=== PATIENT | male | born 1955 | race Caucasian/White ===

== ENCOUNTER 2025-01-19 13:47 | Outpatient (CLI) | payer MEDICARE, SELFPAY ==
--- NOTE | ~2025-01-19 | PE_ITS ---
EXAMINATION: PET_PETPSMAST_PT DATE: 01/19/2025 15:40 INDICATION: Prostate cancer TECHNIQUE: 5.098 mCi of Illucix Ga-68([id number]) was administered i.v. Low dose computed elan graphy (CT) images were acquired from the base of the brain to the base of the brain to the proximal thighs for attenuation correction and anatomic localization. Positron emission tomography (PET) image s were acquired in the same distribution beginning 86 minutes after injection. Images including fused PET/CT images were reconstructed in axial, coronal, and sagittal planes. Automated exposure control technique was employed. The dose-length product was 789.73mGy-cm. COMPARISON: None FINDINGS: Head/neck: Typical pattern of symmetric physiologic increased activity in the lacrimal, parotid and submandibula r glands as well as along the mucosa of the nasal and oral cavities, pharynx and hypopharynx. No path ologically enlarged cervical lymphadenopathy or suspicious foci of increased uptake in the visualized head or neck. Chest: Moderate upper lung predominant emphysema with mild biapical pleural-parenchymal scarring. Dependent groundglass opacities consistent with atelectasis in the bilateral lower lobes. There are large calci fied nodules in both lungs and calcified left hilar lymph node consistent with old granulomatous dise ase. There are couple thick-walled cavitary lesions measuring 1.8 cm in the paramediastinal left uppe r lobe and 1.9 cm in the superior segment of the left lower lobe. 6 mm noncalcified right middle lobe nodule and 5 mm left lower lobe nodule. Larger flat lenticular likely intrafissural lymph nodes anson uring 10 mm along the right minor fissure and 12 mm along the left major fissure. All are without abn ormal PSA may uptake. No pleural effusion. Mild cardiomegaly. Ectatic ascending thoracic aorta measur ing up to 4.0 cm. No pathologically enlarged or PSMA avid thoracic lymphadenopathy. Abdomen/pelvis/proximal thighs: Physiologic renal accumulation and excretion of activity in the kidneys, bladder and along portions o f ureters. Small region of increased activity with maximal SUV of 6.9 at the left posterior aspect of the enlarged prostate which measures 5.0 x 3.9 cm. Normal degree and slightly heterogenous pattern o f increased uptake throughout the liver and spleen without radiologic correlate or dominant PSMA avid lesion. The gallbladder, pancreas and bilateral adrenal glands are normal. Moderate uptake scattered throughout the bowels with typical duodenal and proximal jejunal predominance and without radiologic correlate, also likely physiologic. Normal appendix. No other abnormal foci of increased uptake or p athologically enlarged lymphadenopathy in the abdomen, pelvis or proximal thighs. Musculoskeletal: L1 compression fracture with 40% anterior vertebral body height loss. There is a severe anterior wedg ing at and T7, T8 and T12. Schmorl's nodes throughout the spine. No suspicious lytic, blastic or abno rmally PSA may avid bone lesions to suggest metastatic disease. IMPRESSION: 1. Small focus of moderate increased uptake at the left posterior aspect of the enlarged prostate con sistent with primary prostate cancer. No evident metastatic prostate cancer. 2. Moderate emphysema with a couple thick-walled cavitary lesions in the left upper lobe and superior segment of the left lower lobe which given appearance and multiplicity are most likely infectious/in flammatory in etiology. Differential would however includes malignancy and would recommend correlatio n with any prior outside imaging. If long-term stability cannot be confirmed would consider either fu rther evaluation with standard FDG PET CT or 3 month follow-up chest CT. 3. A few additional indeterminate noncalcified pulmonary nodules and likely intrafissural lymph nodes which could be further assessed at the same time as the cavitary lesions. Reviewed, dictated and finalized at location B. OUT AND DETAIL DRAFTER IMPRESSION: 1. Small focus of moderate increased uptake at the left posterior aspect of the enlarged prostate consistent with primary prostate cancer. No evident metastat ic prostate cancer. 2. Moderate emphysema with a couple thick-walled cavitary lesions in the left u pper lobe and superior segment of the left lower lobe which given appearance an d multiplicity are most likely infectious/inflammatory in etiology. Differentia l would however includes malignancy and would recommend correlation with any pr ior outside imaging. If long-term stability cannot be confirmed would consider either further evaluation with standard FDG PET CT or 3 month follow-up chest C T. 3. A few additional indeterminate noncalcified pulmonary nodules and likely int rafissural lymph nodes which could be further assessed at the same time as the cavitary lesions.
--- OUTSIDE RECORDS SUMMARY | 2025-01-19 16:00 | XMS_ITS | Patient Health Summary ---
Author Organization [facility] [employer] Address [address] [place] [address] Care Team Providers Care Special Officer Name Role Phone Unavailable Primary Care Provider Unavailabl e Note from [facility] [employer] [facility],non-owned Affiliates and Associated Physician Practices is amultiple site organization consisting of ambulatory clinics and hospital sitesin [place], [place], [place] and [place]. This disclosure is being madepursuant to the Care Everywhere program and may not contain all information available regarding this patient. Last updated 18.[facility] [employer] Allergies No known active allergies Medications * Be aware that medications may not be up to date on this document. Alwaysverify current medications with the patient. * ibuprofen (MOTRIN) 400 MG tablet Take 400 mg by mouth every 6 hours as needed. * lisinopril (PRINIVIL; ZESTRIL) 2.5 MG tablet(Started 10/12/2013) Take 1 Tab by mouth once daily. 11 refills left * metoprolol tartrate IR (LOPRESSOR) 25 MG tablet(Started 10/12/2013) Take 0.5 Tabs by mouth 2 times daily. 11 refills left * aspirin 81 MG chew tablet(Started 10/12/2013) Take 1 Tab by mouth once daily. Active Problems Problem Noted Date Diagnosed Date Chest pain 10/10/2013 ACS (acute coronary syndrome) 10/10/2013 NSTEMI (non-ST elevated myocardial infarction) 1 12/10/2012 Social History Tobacco Use Types Packs/Day Years Used Date Smoking Tobacco: Light Smoker Cigarettes 0.5 33 Smokeless Tobacco: Never Tobacco Cessation:Counseling Given: Yes Alcohol Use Standard Drinks/Week Comments Yes 0.8 (1 standard drink = 0.6 oz p ure alcohol) Sex and Gender Information Value Date Recorded Sex Assigned at Not on file Gender Identity Not on file Sexual Orientation Not on file Last Filed Vital Signs Vital Sign Reading Time Taken Comments Blood Pressure 110/66 10/12/2013 12:00 PM [employer] Pulse 63 10/12/2013 12:00 PM [employer] Temperature 36.9 C (98.5 F) 10/12/2013 11:30 AM [employer] Respiratory Rate 19 10/12/2013 11:30 AM [employer] Oxygen Saturation 99% 10/12/2013 12:00 PM [employer] Inhaled Oxygen Concentration - - Weight 66.3 kg (146 lb 2.6 oz) 10/12/2013 5:12 A M [employer] Height 177.8 cm (5' 10 ) 10/10/2013 5:56 PM [employer] Body Mass Index 20.97 10/10/2013 5:56 PM [employer] Procedures * LAB RESULTS ORDER(Performed 10/15/2013) * CARDIAC RHYTHM STRIP ORDER(Performed 10/14/2013) * CARDIAC EKG ORDER(Performed 10/14/2013) * CARDIAC CATH CONSULT(Performed 10/12/2013) * BASIC METABOLIC PANEL (CALCIUM TOTAL)(Performed 10/12/2013) Performed for Chest pain, ACS (acute coronary syndrome) ([facility]), NSTEMI (non-ST elevated myocardial infarction) ([facility]) * LIPID PROFILE(Performed 10/12/2013) * CBC W AUTO DIFFERENTIAL(Performed 10/12/2013) * PTT(Performed 10/12/2013) * PT PTT PANEL(Performed 10/12/2013) * PTT(Performed 10/11/2013) * PTT(Performed 10/11/2013) * PTT(Performed 10/11/2013) Performed for Chest pain * CBC W AUTO DIFFERENTIAL(Performed 10/11/2013) * PT PTT PANEL(Performed 10/11/2013) * TROPONIN I(Performed 10/11/2013) Performed for ACS (acute coronary syndrome) ([facility]) * PTT(Performed 10/11/2013) Performed for ACS (acute coronary syndrome) ([facility]), NSTEMI (non-ST elevated myocardial infarction) ([facility]) * PT PTT PANEL(Performed 10/10/2013) * CBC W AUTO DIFFERENTIAL(Performed 10/10/2013) * TROPONIN I(Performed 10/10/2013) Results * LAB RESULTS ORDER (10/15/2013 10:05 AM [employer]) Narrative 10/15/2013 10:05 AM [employer] Ordered by an unspecified provider. Transcriptions Document, Scanned - 10/15/2013 10:05 AM CST Scanned Document LAB - THERAPEUTIC DR UG MONITORING ORDERABLES * CARDIAC RHYTHM STRIP ORDER (10/14/2013 9:27 AM [employer]) Narrative 10/14/2013 9:27 AM [employer] Ordered by an unspecified provider. Transcriptions Document, Scanned - 10/14/2013 9:26 AM CST Scanned Document CARDIAC SERVICES ORD ERABLES * CARDIAC EKG ORDER (10/14/2013 9:27 AM [employer]PER[employer]) Narrative 10/14/2013 9:27 AM [employer] Ordered by an unspecified provider. 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 PROCEDURES(S) PERFORMED: -- Left heart catheterization with ventriculography. -- Left coronary angiography. -- Right coronary angiography. -- Right common femoral angiography. DESCRIPTION OF PROCEDURE: BACKGROUND INFORMATION: The procedure(s), together with their attendant risks and alternatives, and conscious sedation were explained to the patient and informed consent was obtained. Cardiac catheterization performed. NARRATIVE: -- Right femoral artery access. The procedure was done with 2 % lidocaine using the modified Seldinger technique. A 6 Fr introducer sheath was advanced into the vessel. -- Left heart catheterization. The catheter was advanced across the aortic valve. Pressure was recorded in the aorta and left ventricle. Ventriculography was performed using power assisted injection of contrast agent. URRUTIA images were obtained. Post-ventriculography LV pressure was obtained. The catheter was gradually withdrawn into the aorta under continuous pressure monitoring and aortic pressure was recorded. -- Left coronary artery angiography. A catheter was advanced to the ascending aorta and positioned at the vessel origin under fluoroscopic guidance. Digital angiography was performed in multiple projections using power-assisted injection of contrast. -- Right coronary artery angiography. A catheter was advanced to the ascending aorta and positioned at the vessel origin under fluoroscopic guidance. Digital angiography was performed in multiple projections using power-assisted injection of contrast. -- Right common femoral angiography. HEMODYNAMICS: Hemodynamic assessment demonstrated mild systemic hypertension and normal LVEDP. VENTRICLES: EF calculated by contrast ventriculography was 62 %. CORONARY AND GRAFT ANGIOGRAPHY (DETAILED FINDINGS): The coronary circulation is right dominant. Left main: Normal. Proximal LAD: There was a discrete 30 % stenosis. The lesion was smoothly contoured and concentric. Circumflex: Normal. RCA: Normal. RIGHT LOWER EXTREMITY VESSELS: Right leg angiography was limited to the common femoral and the proximal portion of the superficial femoral and deep femoral arteries. These vessels appeared normal. PROCEDURE COMPLETION: TIMING: Test started at 10:07. Test concluded at 10:21. RADIATION EXPOSURE: Fluoroscopy time: 2.4 min. HEMOSTASIS: The sheaths were removed. Arterial hemostasis was obtained using a closure device ( Angioseal). CONTRAST GIVEN: Omnipaque 83 ml. 10 ml Waste. RECOMMENDATIONS: -- Patient management should include aggressive medical therapy and smoking cessation. CONCLUSIONS(S): SUMMARY: -- HEMODYNAMICS: -- Hemodynamic assessment demonstrated mild systemic hypertension and normal LVEDP. -- CORONARY CIRCULATION: -- Proximal LAD: There was a discrete 30 % stenosis. The lesion was smoothly contoured and concentric. -- CARDIAC STRUCTURES: -- EF calculated by contrast ventriculography was 62 %. 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 I personally performed this entire procedure. All images and data generated for this procedure were personally reviewed by me. Prepared and Electronically Authenticated Soto Lerner MD, [facility], [facility] 10/13/2013 12:09:17 HEMODYNAMIC TABLES Pressures: Baseline Pressures: - HR: 66 Pressures: - Rhythm: Pressures: -- Aortic Pressure (S/D/M): 152/83/108 Pressures: -- Left Ventricle (s/edp): 163/13/-- Outputs: Baseline Outputs: -- CALCULATIONS: [age] Outputs: -- CALCULATIONS: Body Surface Area: 1.83 Outputs: -- CALCULATIONS: Height in cm: 178.00 Outputs: -- CALCULATIONS: Sex: Male Outputs: -- CALCULATIONS: Weight in k.30 Procedure Note 10/13/[address] [address] Cardiovascular Comprehensive Report Patient: CARLOS CURTIS MR #: [id number] Study date: 10/12/2013 Status: Inpatient : 1955 ( 58 years) Gender: Male Height: 70.1 in Weight: 145.9 lb BSA: 1.83 m bean snipper: Soto Lerner MD, [facility], [facility] CLINICAL SUMMARY: INDICATIONS: Angina/RI: myocardial infarction without ST elevation(NSTEMI). PROCEDURES(S) PERFORMED: -- Left heart catheterization with ventriculography. -- Left coronary angiography. -- Right coronary angiography. -- Right common femoral angiography. DESCRIPTION OF PROCEDURE: BACKGROUND INFORMATION: The procedure(s), together with their attendantrisks and alternatives, and conscious sedation were explained to the patientand informed consent was obtained. Cardiac catheterization performed. NARRATIVE: -- Right femoral artery access. The procedure was done with 2 % lidocaine using the modified Seldinger technique. A 6 Fr introducer sheath was advancedinto the vessel. -- Left heart catheterization. The catheter was advanced across theaortic valve. Pressure was recorded in the aorta and left ventricle.Ventriculography was performed using power assisted injection of contrast agent. URRUTIA images were obtained. Post-ventriculography LV pressure was obtained. The catheterwas gradually withdrawn into the aorta under continuous pressure monitoringand aortic pressure was recorded. -- Left coronary artery angiography. A catheter was advanced to theascending aorta and positioned at the vessel origin under fluoroscopic guidance.Digital angiography was performed in multiple projections using power-assisted injection of contrast. -- Right coronary artery angiography. A catheter was advanced to theascending aorta and positioned at the vessel origin under fluoroscopic guidance.Digital angiography was performed in multiple projections using power-assisted injection of contrast. -- Right common femoral angiography. HEMODYNAMICS: Hemodynamic assessment demonstrated mild systemichypertension and normal LVEDP. VENTRICLES: EF calculated by contrast ventriculography was 62 %. CORONARY AND GRAFT ANGIOGRAPHY (DETAILED FINDINGS): The coronary circulation is right dominant. Left main: Normal. Proximal LAD: There was a discrete 30 % stenosis. The lesion wassmoothly contoured and concentric. Circumflex: Normal. RCA: Normal. RIGHT LOWER EXTREMITY VESSELS: Right leg angiography was limited to the common femoral and the proximal portion of the superficial femoral and deep femoral arteries. Thesevessels appeared normal. PROCEDURE COMPLETION: TIMING: Test started at 10:07. Test concluded at10:21. RADIATION EXPOSURE: Fluoroscopy time: 2.4 min. HEMOSTASIS: The sheathswere removed. Arterial hemostasis was obtained using a closure device (Angioseal). CONTRAST GIVEN: Omnipaque 83 ml. 10 ml Waste. RECOMMENDATIONS: -- Patient management should include aggressivemedical therapy and smoking cessation. CONCLUSIONS(S): SUMMARY: -- HEMODYNAMICS: -- Hemodynamic assessment demonstrated mild systemic hypertension andnormal LVEDP. -- CORONARY CIRCULATION: -- Proximal LAD: There was a discrete 30 % stenosis. The lesion wassmoothly contoured and concentric. -- CARDIAC STRUCTURES: -- EF calculated by contrast ventriculography was 62 %. 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 I personally performed this entire procedure. All images and datagenerated for this procedure were personally reviewed by me. Prepared and Electronically Authenticated Soto Lerner MD, [facility], [facility] 10/13/2013 12:09:17 HEMODYNAMIC TABLES Pressures: Baseline Pressures: - HR: 66 Pressures: - Rhythm: Pressures: -- Aortic Pressure (S/D/M): 152/83/108 Pressures: -- Left Ventricle (s/edp): 163/13/-- Outputs: Baseline Outputs: -- CALCULATIONS: [age] Outputs: -- CALCULATIONS: Body Surface Area: 1.83 Outputs: -- CALCULATIONS: Height in cm: 178.00 Outputs: -- CALCULATIONS: Sex: Male Outputs: -- CALCULATIONS: Weight in k.30 Soto Lerner MD ECHO ORDERABLES [facility] * (ABNORMAL) CBC W AUTO DIFFERENTIAL (10/12/2013 5:58 AM [employer]) Only the most recent of3 resultswithin the time period is included. WBC 8.2 4.0 - 10.0 x10^9/L 10/12/2013 6:47 AM [facility] RBC 4.32(L) 4.40 - 6.10 x10^12/L 10/12/2013 6:47 AM [facility] Hemoglobin 13.0(L) 13.7 - 17.5 gm/dL 10/12/2013 6:47 AM [facility] Hematocrit 37.1(L) 40.1 - 51.0 % 10/12/2013 6:47 AM [facility] MCV 85.9 78.0 - 100.0 fl 10/12/2013 6:47 AM [facility] MCH 30.1 25.6 - 34.0 pg 10/12/2013 6:47 AM [facility] MCHC 35.0 32.3 - 36.5 gm/dL 10/12/2013 6:47 AM [facility] RDW 12.9 11.6 - 14.4 % 10/12/2013 6:47 AM [facility] MPV 10.6 9.4 - 12.4 fl 10/12/2013 6:47 AM [facility] Platelet Count 247 163 - 369 x10^9/L 10/12/2013 6:47 AM [facility] Neutrophils % 55.7 40.0 - 75.0 % 10/12/2013 6:47 AM [facility] Lymphocytes % 32.3 19.3 - 53.1 % 10/12/2013 6:47 AM [facility] Monocytes % 6.9 4.7 - 12.5 % 10/12/2013 6:47 AM [facility] Eosinophils % 4.5 0.7 - 7.0 % 10/12/2013 6:47 AM [facility] Basophils % 0.2 0.1 - 1.2 % 10/12/2013 6:47 AM [facility] Immature Granulocytes 0.4 0 - 0.5 % 10/12/2013 6:47 AM [facility] Neutrophil Absolute 4.57 1.56 - 6.13 x10^9/L 10/12/2013 6:47 AM [facility] Lymphocytes Absolute 2.65 1.18 - 3.74 x10^9/L 10/12/2013 6:47 AM [facility] Monocytes Absolute 0.57 0.24 - 0.86 x10^9/L 10/12/2013 6:47 AM [facility] Eosinophils Absolute 0.37 0.04 - 0.54 x10^9/L 10/12/2013 6:47 AM [facility] Basophils Absolute 0.02 0.01 - 0.08 x10^9/L 10/12/2013 6:47 AM [facility] Immature Granulocytes Absolute 0.03 0 - 0.03 x10^9/L 10/12/2013 6:47 AM [facility] nRBC Auto 0 <=0 /100 WBC 10/12/2013 6:47 AM [facility] nRBC Absolute 0.00 <=0 x10^9/L 10/12/2013 6:47 AM [facility] Blood BLOOD SPECIMEN / Unknown Lab Venipuncture / Unknown 10/12/2013 5:58 AM [employer] 10/12/2013 6:30 AM [facility] Ramon Voss MD LAB - HEMATOLOGY ORD ERABLES Performing Organization Address City/State/[facility] Co de Phone Number [facility] [address] [place] [address] * (ABNORMAL) BASIC METABOLIC PANEL (CALCIUM TOTAL) (10/12/2013 5:58 AM [facility]) [facility] Glucose 97 70 - 125 mg/dL 10/12/2013 9:52 AM [facility] Sodium 139 136 - 145 mmol/L 10/12/2013 9:52 AM [facility] Potassium 3.8 3.4 - 4.5 mmol/L 10/12/2013 9:52 AM [facility] Chloride 108(H) 98 - 107 mmol/L 10/12/2013 9:52 AM [facility] CO2 21(L) 22 - 29 mmol/L 10/12/2013 9:52 AM [facility] Calcium 8.8 8.4 - 10.2 mg/dL 10/12/2013 9:52 AM [facility] Anion Gap 14 10 - 20 mmol/L 10/12/2013 9:52 AM [facility] BUN 17 8.4 - 25.7 mg/dL 10/12/2013 9:52 AM [facility] Creatinine 1.10 0.72 - 1.25 mg/dL 10/12/2013 9:52 AM [facility] eGFR by MDRD >60 >60 mL/min/1.7 3m2 10/12/2013 9:52 AM [facility] eGFR by MDRD >60 >60 mL/min/1.7 3m2 10/12/2013 9:52 AM [facility] Blood BLOOD SPECIMEN / Unknown Lab Venipuncture / Unknown 10/12/2013 5:58 AM [employer] 10/12/2013 8:31 AM [facility] Soto Lerner MD LAB - CHEMISTRY [facility] Organization Address City/State/ZIP Co de Phone Number [facility] [address] * LIPID PROFILE (10/12/2013 5:58 AM [facility]) Cholesterol 147 <200 mg/dL 10/12/2013 7:10 AM [facility] Triglycerides 67 <150 mg/dL 10/12/2013 7:10 AM [facility] HDL Cholesterol 41.8 >40 mg/dL 3 7:10 AM [facility] Chol HDL Ratio 3.5 1.0 - 6.0 10/12/2013 7:10 AM [facility] LDL Calculated 92 65 - 130 mg/dL 10/12/2013 7:10 AM [facility] VLDL Calculated 13 10 - 40 mg/dL 10/12/2013 7:10 AM [facility] Blood BLOOD SPECIMEN / Unknown Lab Venipuncture / Unknown 10/12/2013 5:58 AM [employer] 10/12/2013 6:30 AM [facility] Narrative [facility] - 10/12/2013 7:10 AM [facility] Lipid Profile Comment: CHOLESTEROL LEVEL..................CLINICAL INTERPRETATION LESS THAN 200 MG/DL..............................DESIRABLE 200-239 MG/DL..............................BORDERLINE HIGH GREATER THAN 240 MG/DL................................HIGH LDL-CHOLESTEROL LEVEL..............CLINICAL INTERPRETATION LESS THAN 100 MG/DL................................OPTIMAL 100-129 MG/DL.................................NEAR OPTIMAL GREATER THAN 160 MG/DL...........................HIGH RISK HDL RISK LEVEL GREATER THEN 60 MG/DL............................DECREASED 40-60 MG/DL........................................AVERAGE LESS THAN 40 MG/DL...............................INCREASED TRIGLYCERIDE LEVEL..................CLINICAL INTERPRETATION LESS THAN 150 MG/DL...............................DESIRABLE 150-199 MG/DL...............................BORDERLINE HIGH 200-499 MG/DL..........................................HIGH GREATER THAN 500..................................VERY HIGH THE NATIONAL CHOLESTEROL EDUCATION PROGRAM HAS SET THE ABOVE GUIDELINES (REFERANCE VALUES) FOR CHOLESTEROL AND HDL. RISK ASSOCIATED WITH CHOLESTEROL/HDL RATIOS RISK....................MALE RATIO.............FEMALE RATIO 1/2 AVERAGE.................<3.4.......................<3.3 LOW RISK.................... 4.0 ...................... 3.8 AVERAGE..................... 5.0 ...................... 4.5 2X AVERAGE.................. 9.5 ...................... 7.0 3X AVERAGE...................>23........................>11 Soto Lerner MD LAB - CHEMISTRY [facility] Organization Address City/State/ZIP Co de Phone Number [facility] [address] [place] [address], [facility] * (ABNORMAL) PT PTT PANEL (10/12/2013 5:57 AM WIRE COATING OPERATOR [employer]) Only the most recent of3 resultswithin the time period is included. PT 11.1 9.6 - 11.5 sec 10/12/2013 7:01 AM [facility] INR 1.05(L) 2 - 3 10/12/2013 7:01 AM [facility] PTT 28.3 24.0 - 32.0 sec 10/12/2013 7:01 AM [facility] Blood BLOOD SPECIMEN / Unknown Lab Venipuncture / Unknown 10/12/2013 5:57 AM [employer]ATING O[employer] 10/12/2013 6:30 AM [employer] Narrative [facility] - 10/12/2013 7:01 AM [facility] Recommended therapeutic INR ranges for Oral Anticoagulant Therapy: 2.0-3.0 For prevention of Thrombosis or Embolism and treatment of Venous Thrombosis. 2.5- 3.5 for prevention of Recurrent Embolism or treatment of patients with Mechanical Prosthetic Heart Valves. Ramon Voss MD LAB - COAGULATION OR DERABLES Performing Organization Address [facility] de Phone Number [facility] [address] * PTT (10/12/2013 5:57 AM W[employer] COATING OPERATOR [employer]) Only the most recent of5 resultswithin the time period is included. PTT 28.3 24.0 - 32.0 sec 10/12/2013 7:02 AM [facility] Blood BLOOD SPECIMEN / Unknown Lab Venipuncture / Unknown 10/12/2013 5:57 AM W[employer] COATING OPERATOR [employer] 10/12/2013 6:30 AM [employer]ATING OPERATOR [employer]AL Soto Lerner MD LAB - COAGULATION OR DERABLES Performing Organization Address [facility] Co de Phone Number [facility] [address] * (ABNORMAL) TROPONIN I (10/11/2013 1:29 AM W[employer] COATING OPERATOR [employer]) Only the most recent of2 resultswithin the time period is included. Troponin I 0.994(HH) <0.030 ng/mL 10/11/2013 2:19 AM [facility] Blood SERUM OR PLASMA SPECIMEN / Unknown Lab Venipuncture / Unknown 10/11/2013 1:29 AM W[employer]ATING OPERATOR [employer] 10/11/2013 1:33 AM [employer]ATOR [employer] Narrative [facility] - 10/11/2013 2:19 AM W[employer] COATING OPERATOR METAL < 0.03 ng/ml: No detectable elevation above 99th percentile of reference population. > or = 0.03 ng/ml (99th percentile/10% CV level): Suggest myocardial necrosis in the context of clinical suspicion. Underlying etiologies may be ischemic or non- ischemic. Consider possibility of RI (ESC/ACCF/AHF/[facility] [place] Defininition), coupled with high clinical suspicion and rise or fall of troponin level. > 0.3 ng/ml (ALLYSON cutoff): Suggest myocardial infarction in the context of clinical suspicion. Zuly Carvajal DO LAB - CHEMISTRY [facility] SCHER[facility] [address] [place], [place] [address]
--- OUTSIDE RECORDS SUMMARY | 2025-01-19 16:00 | XMS_ITS | Clinical Summary ---
Author Organization [facility] Address [address] 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 This disclosure is being madepursuant to the Care Everywhere program and may not contain all information available regarding this patient. Last updated 18.[facility] Allergies No known active allergies Medications * Be aware that medications may not be up to date on this document. Alwaysverify current medications with the patient. Medication Sig Dispensed Refills Start Date End Date Status ibuprofen (MOTRIN) 400 MG tablet Take 400 mg by mouth every 6 hours as needed. Active lisinopril (PRINIVIL; ZESTRIL) 2.5 MG tablet Take 1 Tab by mouth once daily. 30 Tab 11 10/12/2013 Active metoprolol tartrate IR (LOPRESSOR) 25 MG tablet Take 0.5 Tabs by mouth 2 times daily. 60 Tab 11 10/12/2013 Active aspirin 81 MG chew tablet Take 1 Tab by mouth once daily. 10/12/2013 Active Active Problems Problem Noted Date Diagnosed Date [...] Comments Blood Pressure 110/66 10/12/2013 12:00 PM [employer] Pulse 63 10/12/2013 12:00 PM [employer] Temperature 36.9 C (98.5 F) 10/12/2013 11:30 AM [employer] Respiratory Rate 19 10/12/2013 11:30 AM [employer] Oxygen Saturation 99% 10/12/2013 12:00 PM [employer] Inhaled Oxygen Concentration - - Weight 66.3 kg (146 lb 2.6 oz) 10/12/2013 5:12 A M [employer] Height 177.8 cm (5' 10 ) 10/10/2013 5:56 PM [employer] Body Mass Index 20.97 10/10/2013 5:56 PM [employer] Plan of Treatment Health Maintenance Due Date Last Done Comments COLOGUARD (AGES 45-75) - COL ON CA SCREENING 1953 COLON MONITORING 1953 COLONOSCOPY - COLON CA SCREENING 1953 CT COLONOGRAPHY - COLON CA SCREENING 1953 Colorectal Cancer Screening 1953 FIT - COLON CA SCREENING 1953 FLEX SIG - COLON CA SCREENING 1953 HEPATITIS C SCREENING 06/15/1971 DTAP/TDAP/TD VACCINES (1 - Tdap) 1972 PNEUMOCOCCAL VACCINE 50+ (1 of 2 - PCV) 1972 ZOSTER VACCINE (1 of 2) 2003 AAA SCREENING 2018 LIPID TESTING 10/12/2018 10/12/2013 COVID-19 VACCINE (1 - 2023-2 5 season) 2024 INFLUENZA VACCINE (#1) 2024 DEPRESSION SCREENING 11/25/2024 Respiratory Syncytial Virus (RSV) Vaccine Pt: or over 60 yrs (1 - 1-dose 75+ series) 2028 HEPATITIS B VACCINE Aged Out No longe r eligible based on patient's age to complete this topic HIB VACCINE Aged Out No longer eligi ble based on patient's age to complete this topic HPV VACCINE Aged Out No longer eligi ble based on patient's age to complete this topic MENINGOCOCCAL (Group B) VACCINE Aged Out No longer eligible based on patient's age to complete this topic MENINGOCOCCAL VACCINE Aged Out No erich jackson eligible based on patient's age to complete this topic Procedures Procedure Name Priority Date/Time Associated Diagnosis Comments LIPID PROFILE AM Draw 10/12/2013 5:58 AM [employer] from Last 3 Months or Most Recently Relevant to Health Maintenance Results * LIPID PROFILE (10/12/2013 5:58 AM [employer]) Cholesterol 147 <200 mg/dL 10/12/2013 7:10 AM [employer] [facility] Triglycerides 67 <150 mg/dL 10/12/2013 7:10 AM [employer] [facility] HDL Cholesterol 41.8 >40 mg/dL 3 7:10 AM [employer] [facility] Chol HDL Ratio 3.5 1.0 - 6.0 10/12/2013 7:10 AM [employer] [facility] LDL Calculated 92 65 - 130 mg/dL 10/12/2013 7:10 AM [employer] [facility] VLDL Calculated 13 10 - 40 mg/dL 10/12/2013 7:10 AM [employer] [facility] Blood BLOOD SPECIMEN / Unknown Lab Venipuncture / Unknown 10/12/2013 5:58 AM [employer] 10/12/2013 6:30 AM [facility] Narrative [facility] - 10/12/2013 7:10 AM [employer] Lipid Profile Comment: CHOLESTEROL LEVEL..................CLINICAL INTERPRETATION LESS [...] Lerner MD LAB - CHEMISTRY [facility] Organization Address City/State/ZIP Co de Phone Number [facility] [address] [place] [address], [facility] from Last 3 Months or Most Recently Relevant to Health Maintenance Advance Directives * FULL RESUSCITATION (Latest Code Status on File) Date Activated Date Inactivated Comments 10/12/2013 10:56 AM 10/12/2013 3:58 PM * FULL RESUSCITATION Date Activated Date Inactivated Comments 10/10/2013 7:21 PM 10/12/2013 10:56 AM * FULL RESUSCITATION Date Activated Date Inactivated Comments 10/10/2013 6:57 PM 10/10/2013 7:21 PM
--- OUTSIDE RECORDS SUMMARY | 2025-01-19 16:00 | XMS_ITS | Referral Summary ---
Author Organization [facility] Building [address] Address [address] [place] [address] Care Team Providers Care Interior Design Teacher Name Role Phone Ramon Guidry MD Unavailable [phone] Jorge Santacruz MD Primary Care Provider Fab Parra MD Unavailable [phone] Encounters Date Type Department Care Team Description 01/15/2025 Telephone [facility] Primary Care at [address] [address] Jorge Santacruz MD 12/16/2024 11:00 AM RADIOGRAPHER ANGIOGRAM Office Visit [facility] Primary Care at [address] [address] Jorge Santacruz MD Elevated PSA, between 10 and less than 20 ng/ml (Primary Dx); NESSA (generalized anxiety disorder); Hypertension, essential; Moderate episode of recurrent major depressive disorder (HCC); Personal history of tobacco use; Need for influenza vaccination; Nocturia; Primary insomnia; Vitamin D deficiency; Mixed hyperlipidemia; Chronic right-sided low back pain without sciatica; Chronic pain of right knee from Last 3 Months Allergies No known active allergies Medications fish oil-dha-epa [id number] mg capsule Take 1 capsule by mouth daily Active multivitamin capsule Take 1 capsule by mouth daily Active albuterol HFA (PROVENTIL HFA,VENTOLIN HFA,PROAIR HFA) 90 mcg/actuation inhaler 02/27/2022 Active pravastatin (PRAVACHOL) 10 mg tablet Take 1 tablet by mouth once daily 90 tablet 3 05/14/2023 Active omeprazole (PriLOSEC) 20 mg capsuleIndicatio ns:Gastroesophag eal reflux disease, unspecified whether esophagitis present Take 1 capsule (20 mg total) by mouth daily 90 capsule 3 10/29/2023 Active sertraline (ZOLOFT) 100 mg tabletIndication s:Anxiety Take 1 tablet (100 mg total) by mouth daily 90 tablet 1 06/17/2024 Active amLODIPine (NORVASC) 10 mg tabletIndication s:Hypertension, essential Take 1 tablet by mouth once daily 90 tablet 08/10/2024 Active losartan (COZAAR) 100 mg tabletIndication s:Hypertension, essential Take 1 tablet (100 mg total) by mouth daily 90 tablet 3 09/23/2024 09/23/20 25 Active cholecalciferol (VITAMIN D-3) 5,000 unit tabletIndication s:Vitamin D Deficiency Take 1 tablet (5,000 Units total) by mouth daily 90 tablet 3 09/23/2024 Active traZODone (DESYREL) 100 mg tabletIndication s:Insomnia, unspecified type TAKE 1 TABLET BY MOUTH NIGHTLY NEEDED FOR SLEEP 90 tablet 12/04/2024 Active tamsulosin (FLOMAX) 0.4 mg extended release capsuleIndicatio ns:Nocturia TAKE 1 CAPSULE BY MOUTH NIGHTLY 100 capsule 1 12/04/2024 Active cyclobenzaprine (FLEXERIL) 5 mg tabletIndication s:Muscle Spasm Take 1 tablet (5 mg total) by mouth 2 (two) times a day as needed for muscle spasms 60 tablet 2 12/16/2024 Active Active Problems Problem Noted Date Diagnosed Date Chronic right-sided low back pain without sciati ca 12/10/2023 Assessment & Plan (12/16/2024 11:36 AM RADIOGRAPHER ANGIOGRAM): - chronic, intermittent - past hx of injury - uses muscle relaxer PRN only which has been working well for him - refill provided for flexeril 5 mg BID PRN, on this visit - continue current management XR spine 2021 IMPRESSION: 1. Healing fracture of the anterior superior endplate of C7 2. Multilevel degenerative disc and joint disease, as pronounced and severe at C4-C5 and L5-S1. Assessment & Plan (09/23/2024 10:59 AM CDT): - chronic, intermittent - past hx of injury - uses muscle relaxer PRN only which has been working well for him - refill provided for flexeril 5 mg BID PRN XR spine 2021 IMPRESSION: 1. Healing fracture of the anterior superior endplate of C7 2. Multilevel degenerative disc and joint disease, as pronounced and severe at C4-C5 and L5-S1. Assessment & Plan (12/10/2023 2:23 PM RADIOGRAPHER ANGIOGRAM): - chronic, intermittent - uses muscle relaxer PRN only which has been working well for him XR spine 2021 IMPRESSION: 1. Healing fracture of the anterior superior endplate of C7 2. Multilevel degenerative disc and joint disease, as pronounced and severe at C4-C5 and L5-S1. Bilateral hearing loss 12/10/2023 Assessment & Plan (12/15/2023 9:35 PM RADIOGRAPHER ANGIOGRAM): - chronic, not controlled - had hearing exam several years ago - was told hearing aids around 5k dollars which he cannot afford - has had hearing amplifiers as well without much success and lost one - also does not wear them often - discussed impaired hearing is going to affect how much he understands and his communication which can lead to a false positive screening test for dementia or impaired memory, recommend consistent use of hearing aids of good quality when testing Nocturia 10/29/2023 Assessment & Plan (12/16/2024 11:27 AM RADIOGRAPHER ANGIOGRAM): - Chronic condition, better controlled - nocturia affecting sleep, better controlled - has elevated PSA which is to be repeated soon as well - he started OTC saw palmetto containing product for prostate with limited help - currently on Tamsulosin 0.4 mg nightly on last visit and also taking a supplement that has helped him - he is yet to do repeat PSA which has been ordered for him to be done, reminder provided last visit and again on this visit Lab Results Component Value Date PSA 13.08 (H) 09/23/2024 PSA 10.0 (H) 12/10/2023 PSA 8.91 (H) 08/15/2023 Assessment & Plan (12/15/2023 9:33 PM RADIOGRAPHER ANGIOGRAM): - recent diagnosis, nocturia affecting sleep, better controlled - has elevated PSA which is to be repeated soon as well - he started OTC saw palmetto containing product for prostate with limited help - started Tamsulosin 0.4 mg nightly on last visit --> has helped - he is yet to do repeat PSA which has been ordered for him to be done, reminder provided Lab Results Component Value Date PSA 8.91 (H) 08/15/2023 Assessment & Plan (10/29/2023 2:07 PM RADIOGRAPHER ANGIOGRAM): - nocturia affecting sleep - has elevated PSA which is to be repeated soon as well - he started OTC saw palmetto containing product for prostate with limited help - start Tamsulosin 0.4 mg nightly - follow up in 6 weeks Elevated PSA, between 10 and less than 20 ng/ml 08/16/2023 Overview (12/16/2024): Established with Urology Assessment & Plan (12/16/2024 11:29 AM RADIOGRAPHER ANGIOGRAM): - Chronic condition, persisting - most recent lab as shown below - also has nocturia which is being addressed - repeat PSA was elevated on last visit, he was referred to urology but has not established care yet - referred to urology established care with Dr. Dixon - states has f/u angely next week, states his PSA is going down to 13 - has had Prostate pelvis MRI already and is scheduled for Biopsy soon Lab Results Component Value Date PSA 13.08 (H) 09/23/2024 PSA 10.0 (H) 12/10/2023 PSA 8.91 (H) 08/15/2023 Assessment & Plan (09/23/2024 5:10 PM CDT): - Chronic condition, worse - most recent lab as shown below - also has nocturia which is being addressed - repeat PSA was elevated on last visit, he was referred to urology but has not established care yet - here with sister, discussed my concern about the elevated PSA and prostate cancer, urging that they make this sure this is done and established with Urology, if they have not heard back need to let me know in 2 weeks Lab Results Component Value Date PSA 13.08 (H) 09/23/2024 PSA 10.0 (H) 12/10/2023 PSA 8.91 (H) 08/15/2023 Assessment & Plan (12/10/2023 2:09 PM RADIOGRAPHER ANGIOGRAM): - recent diagnosis, noted on lab work - most recent lab as shown below - repeat PSA total and free in 3 months was ordered for confirmation which is due to be done soon, reminder provided - also has nocturia which is being addressed Lab Results Component Value Date PSA 8.91 (H) 08/15/2023 Assessment & Plan (10/29/2023 2:05 PM RADIOGRAPHER ANGIOGRAM): - recent diagnosis, noted on lab work - most recent lab as shown below - repeat PSA total and free in 3 months for confirmation which was ordered on last visit and will be due in few weeks, reminder provided Lab Results Component Value Date PSA 8.91 (H) 08/15/2023 Assessment & Plan (08/16/2023 12:47 PM CDT): - new diagnosis, noted on lab work - most recent lab as shown below - repeat PSA total and free in 3 months for confirmation Lab Results Component Value Date PSA 8.91 (H) 08/15/2023 Full dentures 08/16/2023 Preventative health care 08/15/2023 Assessment & Plan (09/23/2024 5:10 PM CDT): - New or chronic worsening conditions: Vitamin D deficiency, Memory concerns, Insomnia, Anxiety, elevated PSA - Mental health: not at goal, known anxiety and depression - Dental health: has all dentures - Nutrition: Stressed importance of moderation in sodium/caffeine intake, saturated fat and cholesterol, caloric balance, sufficient intake of fresh fruits, vegetables - Exercise: Stressed the importance of regular exercise - Immunizations: Age and sex appropriate immunizations reviewed --> recommend shingles Prostate cancer screening: up to date Colon cancer screening: up to date Lung cancer screening: up to date Assessment & Plan (08/16/2023 12:47 PM CDT): - New or chronic worsening conditions: smoking, insomnia, elevated PSA - Mental health: stable - Dental health: has all dentures - Nutrition: Stressed importance of moderation in sodium/caffeine intake, saturated fat and cholesterol, caloric balance, sufficient intake of fresh fruits, vegetables - Exercise: Stressed the importance of regular exercise - Immunizations: Age and sex appropriate immunizations reviewed --> recommend shingles Prostate cancer screening: up to date Colon cancer screening: up to date Lung cancer screening: up to date Personal history of tobacco use 09/21/2022 Assessment & Plan (12/16/2024 11:25 AM RADIOGRAPHER ANGIOGRAM): Social History Tobacco Use Smoking Status Every Day Current packs/day: 0.25 Average packs/day: 0.3 packs/day for 40.3 years (10.1 ttl pk-yrs) Types: Cigarettes Start date: 11/25/1987 Smokeless Tobacco Never - chronic, improved --> reports has cut down significantly to less than 1/day --> congratulations, keep it up - tried chantix, down by half of what he used to smoke from 1/2 pk/day to 3-5 cigs/daily, keep it up - lung cancer screening, stays up to date - has known pulmonary nodule, and severe emphysema - being followed by Pulmonology Assessment & Plan (12/10/2023 2:12 PM RADIOGRAPHER ANGIOGRAM): Social History Tobacco Use Smoking Status Every Day Packs/day: 0.25 Years: 40.00 Additional pack years: 0.00 Total pack years: 10.00 Types: Cigarettes Start date: 11/25/1987 Smokeless Tobacco Never - chronic, improved - tried chantix, down by half of what he used to smoke from 1/2 pk/day to 3-5 cigs/daily, keep it up - lung cancer screening, stays up to date mostly, due soon - has known pulmonary nodule, and severe emphysema - being followed by Pulmonology CT Chest WO Contrast 11/2022 IMPRESSION: 1. Nearly completely healed fracture of the upper body of the sternum. 2. Moderate compression fracture of L1 with some retropulsion of bone, unchanged. 3. Severe emphysema 4. No evidence of lung cancer. No additional follow-up is recommended. Assessment & Plan (10/29/2023 12:22 PM RADIOGRAPHER ANGIOGRAM): Social History Tobacco Use Smoking Status Every Day Packs/day: 0.25 Years: 40.00 Additional pack years: 0.00 Total pack years: 10.00 Types: Cigarettes Start date: 11/25/1987 Smokeless Tobacco Never - chronic, improved - tried chantix, down by half of what he used to smoke from 1/2 pk/day to 3-5 cigs/daily, keep it up - up to date with lung cancer screening - has known pulmonary nodule, and severe emphysema - being followed by Pulmonology CT Chest WO Contrast 11/2022 IMPRESSION: 1. Nearly completely healed fracture of the upper body of the sternum. 2. Moderate compression fracture of L1 with some retropulsion of bone, unchanged. 3. Severe emphysema 4. No evidence of lung cancer. No additional follow-up is recommended. Assessment & Plan (08/16/2023 12:50 PM CDT): Social History Tobacco Use Smoking Status Light Smoker Packs/day: 0.75 Years: 40.00 Additional pack years: 0.00 Total pack years: 30.00 Types: Cigarettes Start date: 11/25/1987 Last attempt to quit: 11/24/2018 Years since quittin.7 Smokeless Tobacco Never - chronic, worse - restarted smoking about 5-6 months ago, smoking about 1/2 cigarret/day - up to date with lung cancer screening - has known pulmonary nodule, and severe emphysema - being followed by Pulmonology CT Chest WO Contrast 11/2022 IMPRESSION: 1. Nearly completely healed fracture of the upper body of the sternum. 2. Moderate compression fracture of L1 with some retropulsion of bone, unchanged. 3. Severe emphysema 4. No evidence of lung cancer. No additional follow-up is recommended. Assessment & Plan (09/21/2022 6:08 AM CDT): Social History Tobacco Use Smoking Status Light Smoker Packs/day: 0.05 Years: 40.00 Pack years: 2.00 Types: Cigarettes Start date: 11/25/1987 Last attempt to quit: 11/24/2018 Years since quittin.8 Smokeless Tobacco Never - will clarify how much he smokes - up to date with lung cancer screening - has known pulmonary nodule, and severe emphysema - being followed by Pulmonology now Personal history of colonic polyps 09/20/2022 Assessment & Plan (09/20/2022 1:52 PM CDT): - Colonoscopy 2019, Polyp removed Neg repeat colonoscopy in [address] Yancey Closed unstable burst fracture of first lumbar v ertebra 05/23/2022 Multiple pulmonary nodules d etermined by computed tomography of lung 01/30/2021 Overview (01/30/2021): Found on screening CT chest 01/2021 PET scan ordered Referral to pulmonology Assessment & Plan (02/16/2021 1:29 PM CDT): Found on screening CT chest 01/2021 PET scan done and pt will need biopsy and to see pulmonology Referral to pulmonology placed Smoked x 30 yrs. He quit 3-4 mo ago[address] Please see Dr. Joya (pulmonology) [phone] call for appt Emphysema of lung 01/30/2021 Overview (12/16/2024): Follows with Pulmonology Assessment & Plan (08/16/2023 12:51 PM CDT): - chronic, stable - Found on screening CT chest 01/2021 - also has known pulmonary nodules - being monitored - Established with Pulmonology already - only on albuterol/ventolin inhaler only??? Not good historian - former smoker, quit in 2018, will clarify how much he smokes in pack years CT Chest WO Contrast 11/2022 IMPRESSION: 1. Nearly completely healed fracture of the upper body of the sternum. 2. Moderate compression fracture of L1 with some retropulsion of bone, unchanged. 3. Severe emphysema 4. No evidence of lung cancer. No additional follow-up is recommended. CT Chest 05/2022 IMPRESSION: 1. Cavitary 2.5 cm left lower lobe pulmonary nodule and multiple additional smaller pulmonary nodules, stable compared with 02/20/2022. With slight increase in size of the largest nodule since 01/28/2021, follow-up at 18-24 months from the 02/20/2022 study (15-21 months from the current study) is recommended. 2. Multiple additional small pulmonary nodules appear stable compared with previous CT. 3. Severe pulmonary emphysema. 4. L1 compression fracture with increasing vertebral body height loss and osseous retropulsion compared with 05/22/2022. Stable L1 compression fracture. Assessment & Plan (09/21/2022 6:06 AM CDT): - Found on screening CT chest 01/2021 - also has known pulmonary nodule, most recent imaging as documented below - Established with Pulmonology already - only on albuterol inhaler, no controller, not symptomatic - former smoker, quit in 2018, will clarify how much he smokes in pack years CT Chest 05/2022 IMPRESSION: 1. Cavitary 2.5 cm left lower lobe pulmonary nodule and multiple additional smaller pulmonary nodules, stable compared with 02/20/2022. With slight increase in size of the largest nodule since 01/28/2021, follow-up at 18-24 months from the 02/20/2022 study (15-21 months from the current study) is recommended. 2. Multiple additional small pulmonary nodules appear stable compared with previous CT. 3. Severe pulmonary emphysema. 4. L1 compression fracture with increasing vertebral body height loss and osseous retropulsion compared with 05/22/2022. Stable L1 compression fracture. Assessment & Plan (02/16/2021 1:28 PM CDT): Found on screening CT chest 01/2021 Referral to pulmonology placed Smoked x 30 yrs. He quit 3-4 mo ago[address] Please see Dr. Joya (pulmonology) [phone] call for appt Primary insomnia 01/04/2021 Assessment & Plan (12/16/2024 11:26 AM RADIOGRAPHER ANGIOGRAM): - chronic condition, well controlled - currently on Trazodone 100 mg nightly as needed only - has medication for nocturia - The current medical regimen is effective; continue present plan and medications. Assessment & Plan (09/23/2024 10:57 AM CDT): - chronic condition, not well controlled - currently on Trazodone 100 mg nightly as needed only ( and only taking 1/2 tablets) --> recommend regular use as prescribed of the full dose 100 mg tablet nightly - need better control of nocturia, see other plan - continue current management Assessment & Plan (10/29/2023 12:21 PM RADIOGRAPHER ANGIOGRAM): - chronic condition, not well controlled - currently on Trazodone 100 mg nightly as needed only - need better control of nocturia, see other plan - continue current management Assessment & Plan (08/15/2023 1:49 PM CDT): - chronic condition, worse - has been out of his Trazodone 100 mg nightly --> refill provided - continue current management Assessment & Plan (02/16/2021 1:32 PM CDT): Pt received trazodone 50mg nightly from previous provider Refer to Dr. Turner (sleep medicine) to be evaluated Assessment & Plan (01/04/2021 11:18 AM RADIOGRAPHER ANGIOGRAM): Pt has never had sleep study done. Refer to Dr. Turner (sleep medicine) to be evaluated for sleep study NESSA (generalized anxiety disorder) 01/04/2021 Assessment & Plan (12/16/2024 11:30 AM RADIOGRAPHER ANGIOGRAM): - chronic, better controlled - hx of anxiety and depression - more depressed, more irritability - currently on Sertraline 100 mg daily - no si, hi, delusions, hallucinations The current medical regimen is effective; continue present plan and medications. Lab Results Component Value Date TSH 2.36 09/23/2024 Assessment & Plan (09/23/2024 11:05 AM CDT): - chronic, not at goal, worse - hx of anxiety and depression - more depressed, more irritability - currently on Sertraline 100 mg daily but not taking it regularly (states maybe 3 days a week) --> recommend consistent intake - no si, hi, delusions, hallucinations - some concern with memory, see other plan Lab Results Component Value Date TSH 5.53 (H) 08/15/2023 Assessment & Plan (12/10/2023 2:15 PM RADIOGRAPHER ANGIOGRAM): - chronic, controlled - currently on Sertraline 100 mg daily - no si, hi, delusions, hallucinations - continue current management Lab Results Component Value Date TSH 5.53 (H) 08/15/2023 Assessment & Plan (08/15/2023 1:43 PM CDT): - chronic, controlled - currently on Sertraline 100 mg daily - no si, hi, delusions, hallucinations - continue current management Lab Results Component Value Date TSH 2.67 10/04/2021 Assessment & Plan (09/21/2022 6:08 AM CDT): - chronic, controlled - currently on Sertraline 100 mg daily - no si, hi, delusions, hallucinations - continue current management Lab Results Component Value Date TSH 2.67 10/04/2021 Assessment & Plan (02/16/2021 1:36 PM CDT): HPI: Condition is stable A&P: Discussed/ordered labs, encouraged healthy, low carbohydrate lifestyle and at least 150min/week of exercise, continue on sertraline 100mg daily This is not an as needed medication. This is for you to take daily. Assessment & Plan (01/04/2021 11:25 AM RADIOGRAPHER ANGIOGRAM): Patient reiterated no suicidal thoughts at this time; take medication as directed; contact 911 and go to the ER if becomes suicidal; discussed side effects of medication with patient; encouraged healthy diet and exericise; encouraged patient to see a counselor HPI: Condition is stable A&P: Discussed/ordered labs, encouraged healthy, low carbohydrate lifestyle and at least 150min/week of exercise, continue on sertraline 100mg daily Moderate episode of recurrent major depressive d isorder 01/04/2021 Assessment & Plan (12/16/2024 11:30 AM RADIOGRAPHER ANGIOGRAM): - chronic, better controlled - hx of anxiety and depression - more depressed, more irritability - currently on Sertraline 100 mg daily - no si, hi, delusions, hallucinations The current medical regimen is effective; continue present plan and medications. Lab Results Component Value Date TSH 2.36 09/23/2024 Assessment & Plan (09/23/2024 11:05 AM CDT): - chronic, not at goal, worse - hx of anxiety and depression - more depressed, more irritability - currently on Sertraline 100 mg daily but not taking it regularly (states maybe 3 days a week) --> recommend consistent intake - no si, hi, delusions, hallucinations - some concern with memory, see other plan Assessment & Plan (12/10/2023 2:14 PM RADIOGRAPHER ANGIOGRAM): - chronic, controlled - currently on Sertraline 100 mg daily - no SI, HI, delusions, hallucinations - continue current management Assessment & Plan (10/29/2023 2:05 PM RADIOGRAPHER ANGIOGRAM): - chronic, controlled - currently on Sertraline 100 mg daily - no SI, HI, delusions, hallucinations - continue current management Assessment & Plan (08/15/2023 1:43 PM CDT): - chronic, controlled - currently on Sertraline 100 mg daily - no si, hi, delusions, hallucinations - continue current management Assessment & Plan (09/21/2022 6:08 AM CDT): - chronic, controlled - currently on Sertraline 100 mg daily - no si, hi, delusions, hallucinations - continue current management Assessment & Plan (02/16/2021 1:35 PM CDT): HPI: Condition is stable A&P: Discussed/ordered labs, encouraged healthy, low carbohydrate lifestyle and at least 150min/week of exercise, continue on sertraline 100mg daily This is not an as needed medication. This is for you to take daily. Assessment & Plan (01/04/2021 11:25 AM RADIOGRAPHER ANGIOGRAM): Patient reiterated no suicidal thoughts at this time; take medication as directed; contact 911 and go to the ER if becomes suicidal; discussed side effects of medication with patient; encouraged healthy diet and exericise; encouraged patient to see a counselor HPI: Condition is stable A&P: Discussed/ordered labs, encouraged healthy, low carbohydrate lifestyle and at least 150min/week of exercise, continue on sertraline 100mg daily GERD (gastroesophageal reflux disease) Assessment & Plan (09/23/2024 10:44 AM CDT): - chronic, stable - currently on Omeprazole 20 mg daily PRN - Continue on current meds, encouraged healthy diet and exercise Recommend the following changes: - Avoid trigger foods (such as spicy foods, fried foods, onions, peppermints, chocolate, high acid foods and juices, caffeinated beverages, carbonated beverages, and tomato based products). - Avoid alcohol take. - Avoid routine use of NSAIDs. - Avoid lying down for 2-3 hours after eating. - Weight loss encouraged. - Eat smaller meals. - Avoid tobacco use. - Sleep on left side. - may sleep with bed propped. - Avoid wearing tight clothing that puts pressure on the stomach. Assessment & Plan (10/29/2023 2:06 PM RADIOGRAPHER ANGIOGRAM): - chronic, stable - currently on Omeprazole 20 mg daily PRN - Continue on current meds, encouraged healthy diet and exercise Recommend the following changes: - Avoid trigger foods (such as spicy foods, fried foods, onions, peppermints, chocolate, high acid foods and juices, caffeinated beverages, carbonated beverages, and tomato based products). - Avoid alcohol take. - Avoid routine use of NSAIDs. - Avoid lying down for 2-3 hours after eating. - Weight loss encouraged. - Eat smaller meals. - Avoid tobacco use. - Sleep on left side. - may sleep with bed propped. - Avoid wearing tight clothing that puts pressure on the stomach. Assessment & Plan (08/15/2023 1:49 PM CDT): - chronic, stable - currently on Omeprazole 20 mg daily PRN - Continue on current meds, encouraged healthy diet and exercise - Discussed increased risk of cdif and vit B12 deficiency with detention use of PPI. Recommend the following changes: - Avoid trigger foods (such as spicy foods, fried foods, onions, peppermints, chocolate, high acid foods and juices, caffeinated beverages, carbonated beverages, and tomato based products). - Avoid alcohol take. - Avoid routine use of NSAIDs. - Avoid lying down for 2-3 hours after eating. - Weight loss encouraged. - Eat smaller meals. - Avoid tobacco use. - Sleep on left side. - may sleep with bed propped. - Avoid wearing tight clothing that puts pressure on the stomach. Assessment & Plan (09/21/2022 6:01 AM CDT): - chronic, stable - currently on Omeprazole 20 mg daily PRN - Continue on current meds, encouraged healthy diet and exercise - Discussed increased risk of cdif and vit B12 deficiency with oil agent use of PPI. Recommend the following changes: - Avoid trigger foods (such as spicy foods, fried foods, onions, peppermints, chocolate, high acid foods and juices, caffeinated beverages, carbonated beverages, and tomato based products). - Avoid alcohol take. - Avoid routine use of NSAIDs. - Avoid lying down for 2-3 hours after eating. - Weight loss encouraged. - Eat smaller meals. - Avoid tobacco use. - Sleep on left side. - may sleep with bed propped. - Avoid wearing tight clothing that puts pressure on the stomach. Assessment & Plan (02/16/2021 1:31 PM CDT): HPI: Condition is stable Continue on current meds omeprazole, encouraged healthy diet and exercise Avoid trigger foods including: carbonated beverages, caffeine, spicy, fried foods, tomatoes, cucumbers, and mint Avoid eating/drinking anything for at least 2 hours before bed. Sleep with bed propped. Discussed increased risk of cdif and vit B12 deficiency with detention use of PPI with pt, would like to remain on medication at this time Assessment & Plan (01/04/2021 11:12 AM RADIOGRAPHER ANGIOGRAM): HPI: Condition is stable Continue on current meds omeprazole 20mg when needed, encouraged healthy diet and exercise Avoid trigger foods including: carbonated beverages, caffeine, spicy, fried foods, tomatoes, cucumbers, and mint Avoid eating/drinking anything for at least 2 hours before bed. Sleep with bed propped. Discussed increased risk of cdif and vit B12 deficiency with oil agent use of PPI with pt, would like to remain on medication at this time Hypertension, essential 01/04/2021 Assessment & Plan (12/16/2024 11:22 AM RADIOGRAPHER ANGIOGRAM): BP Readings from Last 3 Encounters: 12/16/24 118/82 09/23/24 160/94 12/10/23 164/98 - chronic, not at goal - supposed to be on Amlodipine 10 mg daily and Losartan 50 mg daily --> inconsistent with medication, states he is only on one of the medications, try to find out - Looks like he is not on losartan 50 mg daily medication, start losartan 100 mg daily, script sent in - concern about medication compliance - continue current management - follow low salt diet, lead an active lifestyle - monitor electrolytes - monitor Blood pressure closely at home as well Lab Results Component Value Date POTASSIUM 3.9 09/23/2024 Assessment & Plan (09/23/2024 10:54 AM CDT): BP Readings from Last 3 Encounters: 09/23/24 160/94 12/10/23 164/98 10/29/23 160/100 - chronic, not at goal - supposed to be on Amlodipine 10 mg daily and Losartan 50 mg daily --> inconsistent with medication, states he is only on one of the medications, try to find out - Looks like he is not on losartan 50 mg daily medication, start losartan 100 mg daily, script sent in - concern about medication compliance - continue current management - follow low salt diet, lead an active lifestyle - monitor electrolytes - monitor Blood pressure closely at home as well Lab Results Component Value Date POTASSIUM 3.8 08/15/2023 Assessment & Plan (12/15/2023 9:32 PM RADIOGRAPHER ANGIOGRAM): BP Readings from Last 3 Encounters: 12/10/23 160/98 10/29/23 160/100 08/15/23 132/84 - chronic, not at goal - patient was restarted on Amlodipine 10 mg daily on last visit after he was noted to have been out of it --> still poorly controlled, adding Losartan 50 mg daily - concern about medication compliance - continue current management - follow low salt diet, lead an active lifestyle - monitor electrolytes - monitor Blood pressure closely at home as well Lab Results Component Value Date POTASSIUM 3.8 08/15/2023 Assessment & Plan (10/29/2023 2:05 PM RADIOGRAPHER ANGIOGRAM): BP Readings from Last 3 Encounters: 10/29/23 160/100 08/15/23 132/84 09/20/22 140/82 - chronic, worse - has been without his medication Amlodipine 10 mg daily --> restart medication, new script sent in - continue current management - follow low salt diet - monitor electrolytes Lab Results Component Value Date POTASSIUM 3.8 08/15/2023 Assessment & Plan (08/15/2023 1:43 PM CDT): BP Readings from Last 3 Encounters: 08/15/23 132/84 09/20/22 140/82 05/28/22 142/88 - chronic, stable - currently on Amlodipine 10 mg daily - continue current management - follow low salt diet - monitor electrolytes Lab Results Component Value Date POTASSIUM 3.9 05/25/2022 Assessment & Plan (09/21/2022 6:00 AM CDT): - chronic, stable - currently on Amlodipine 10 mg daily - continue current management - follow low salt diet - monitor electrolytes Lab Results Component Value Date POTASSIUM 3.9 05/25/2022 Assessment & Plan (02/16/2021 1:31 PM CDT): HPI: Condition is improving A&P: Discussed/ordered labs, encouraged healthy, low carbohydrate lifestyle and at least 150min/week of exercise, continue on amlodipine 10mg daily Assessment & Plan (01/04/2021 11:16 AM RADIOGRAPHER ANGIOGRAM): HPI: Condition is worsening A&P: Discussed/ordered labs, encouraged healthy, low carbohydrate lifestyle and at least 150min/week of exercise, increase your amlodipine to 10mg daily Check blood pressure every couple days and call in bp readings in a week Vitamin D deficiency 01/04/2021 Assessment & Plan (12/16/2024 11:36 AM RADIOGRAPHER ANGIOGRAM): - chronic, better controlled - started Vitamin D 5000 international units daily on last visit - most recent lab as shown below - recheck labs for next visit, order placed Lab Results Component Value Date 25HYDROVITD 28 (L) 09/23/2024 25HYDROVITD 33 08/15/2023 25HYDROVITD 39 10/04/2021 25HYDROVITD 36 01/04/2021 Assessment & Plan (09/23/2024 5:08 PM CDT): - chronic, not at goal, worse - not on daily vitamin D supplementation, takes a multivitamin daily --> start Vitamin D 5000 international units daily, script sent in - most recent lab as shown below Lab Results Component Value Date 25HYDROVITD 28 (L) 09/23/2024 25HYDROVITD 33 08/15/2023 25HYDROVITD 39 10/04/2021 25HYDROVITD 36 01/04/2021 Assessment & Plan (12/10/2023 2:18 PM RADIOGRAPHER ANGIOGRAM): - chronic, stable - not on daily vitamin D supplementation, takes a multivitamin daily - most recent lab as shown below - continue current management Lab Results Component Value Date 25HYDROVITD 33 08/15/2023 25HYDROVITD 39 10/04/2021 25HYDROVITD 36 01/04/2021 Assessment & Plan (02/16/2021 1:35 PM CDT): HPI: Condition is stable A&P: Discussed/ordered labs, encouraged healthy, low carbohydrate lifestyle and at least 150min/week of exercise, continue on vit d3 200-5000 units daily Mixed hyperlipidemia 01/04/2021 Assessment & Plan (12/16/2024 11:34 AM RADIOGRAPHER ANGIOGRAM): - chronic, better controlled - currently on pravastatin 10 mg daily - most recent LDL as shown below The current medical regimen is effective; continue present plan and medications. Lab Results Component Value Date CHOL 144 09/23/2024 CHOL 166 08/15/2023 CHOL 192 01/04/2021 Lab Results Component Value Date HDL 41 09/23/2024 HDL 41 08/15/2023 HDL 48 01/04/2021 Lab Results Component Value Date LDLCALC 92 09/23/2024 LDLCALC 104 08/15/2023 LDLCALC 130 (H) 01/04/2021 Lab Results Component Value Date TRIG 53 09/23/2024 TRIG 104 08/15/2023 TRIG 71 01/04/2021 The ASCVD Risk score (Art VALIENTE, et al., 2019) failed to calculate for the following reasons: Risk score cannot be calculated because patient has a medical history suggesting prior/existing ASCVD Assessment & Plan (09/23/2024 10:44 AM CDT): - chronic, better controlled - currently on pravastatin 10 mg daily - most recent LDL as shown below - continue current management Lab Results Component Value Date CHOL 166 08/15/2023 CHOL 192 01/04/2021 CHOL 129 10/16/2013 Lab Results Component Value Date HDL 41 08/15/2023 HDL 48 01/04/2021 HDL 38 10/16/2013 Lab Results Component Value Date LDLCALC 104 08/15/2023 LDLCALC 130 (H) 01/04/2021 LDLCALC 84 10/16/2013 Lab Results Component Value Date TRIG 104 08/15/2023 TRIG 71 01/04/2021 TRIG 35 10/16/2013 The ASCVD Risk score (Art VALIENTE, et al., 2019) failed to calculate for the following reasons: The patient has a prior VA or stroke diagnosis Assessment & Plan (12/10/2023 2:14 PM RADIOGRAPHER ANGIOGRAM): - chronic, better controlled - currently on pravastatin 10 mg daily - most recent LDL as shown below - continue current management Lab Results Component Value Date CHOL 166 08/15/2023 CHOL 192 01/04/2021 CHOL 129 10/16/2013 Lab Results Component Value Date HDL 41 08/15/2023 HDL 48 01/04/2021 HDL 38 10/16/2013 Lab Results Component Value Date LDLCALC 104 08/15/2023 LDLCALC 130 (H) 01/04/2021 LDLCALC 84 10/16/2013 Lab Results Component Value Date TRIG 104 08/15/2023 TRIG 71 01/04/2021 TRIG 35 10/16/2013 The ASCVD Risk score (Art VALIENTE, et al., 2019) failed to calculate for the following reasons: The patient has a prior VA or stroke diagnosis Assessment & Plan (10/29/2023 12:20 PM RADIOGRAPHER ANGIOGRAM): - chronic, better controlled - currently on pravastatin 10 mg daily - most recent LDL as shown below - continue current management Lab Results Component Value Date CHOL 166 08/15/2023 CHOL 192 01/04/2021 CHOL 129 10/16/2013 Lab Results Component Value Date HDL 41 08/15/2023 HDL 48 01/04/2021 HDL 38 10/16/2013 Lab Results Component Value Date LDLCALC 104 08/15/2023 LDLCALC 130 (H) 01/04/2021 LDLCALC 84 10/16/2013 Lab Results Component Value Date TRIG 104 08/15/2023 TRIG 71 01/04/2021 TRIG 35 10/16/2013 The ASCVD Risk score (Art VALIENTE, et al., 2019) failed to calculate for the following reasons: The patient has a prior VA or stroke diagnosis Assessment & Plan (08/16/2023 12:51 PM CDT): - chronic, better controlled - currently on pravastatin 10 mg daily - most recent LDL as shown below - recheck lipid panel, updated result as shown below Lab Results Component Value Date CHOL 166 08/15/2023 CHOL 192 01/04/2021 CHOL 129 10/16/2013 Lab Results Component Value Date HDL 41 08/15/2023 HDL 48 01/04/2021 HDL 38 10/16/2013 Lab Results Component Value Date LDLCALC 104 08/15/2023 LDLCALC 130 (H) 01/04/2021 LDLCALC 84 10/16/2013 Lab Results Component Value Date TRIG 104 08/15/2023 TRIG 71 01/04/2021 TRIG 35 10/16/2013 The ASCVD Risk score (Art VALIENTE, et al., 2019) failed to calculate for the following reasons: The patient has a prior VA or stroke diagnosis Assessment & Plan (09/21/2022 5:59 AM CDT): - chronic, not well controlled - currently on pravastatin 10 mg daily - most recent LDL as shown below - recheck lipid panel, afterwards anticipate to change his medication Lab Results Component Value Date LDLCALC 130 (H) 01/04/2021 The ASCVD Risk score (Art VALIENTE, et al., 2019) failed to calculate for the following reasons: The patient has a prior VA or stroke diagnosis Assessment & Plan (02/16/2021 1:35 PM CDT): HPI: Condition is stable A&P: Discussed/ordered labs, encouraged healthy, low carbohydrate lifestyle and at least 150min/week of exercise, continue on pravastatin 10mg nightly and fish oil Push water start on fish oil 2000-2400mg of EPA/DHA. You will find this by looking at the ingredients section of the bottle of fish oil. Please add the EPA and DHA numbers together and take enough capsules to meet the 2000-2400mg every day. This dose will help bring down your triglycerides along with a lower carb lifestyle and exercise. The brand HOSTEX [place] 3 2100 Olcenic Blend is a good brand and you will only need to take one capsule daily Resolved Problems Problem Noted Date Diagnosed Date Resolved Date Trauma 05/23/2022 09/20/2022 Ascending aortic aneurysm 01/30/2021 Overview (01/30/2021): Found on screening CT chest 01/2021 Referral to cardiology placed Assessment & Plan (02/16/2021 1:27 PM CDT): Found on screening CT chest 01/2021 Referral to cardiology placed I would like you to see Dr. Valero (cardiology) [phone] please call to set up appt Subclinical hypothyroidism 01/04/2021 0 08/15/2023 Assessment & Plan (09/20/2022 1:53 PM CDT): - check lab work Lab Results Component Value Date TSH 2.67 10/04/2021 Immunizations Immunization Administration Dates Next Due Influenza, Quadrivalent, Hig h Dose, Preservative Free, Intrr 10/29/2023,09/20/2022,10/04/2021 Influenza, Quadrivalent, Spl it, Preservative Free, Intramuscular 10/14/2014 Influenza, Trivalent, High D ose, Split, Preservative Free, Intramuscular 12/16/2024 Influenza, Trivalent, IM (MDV) 09/10/2019 Influenza, Unspecified 09/23/2024(Deferr ed: Patient Refused),09/23/2024(Deferred: Patient Refused),08/25/2020(Deferred: Patient Refused),11/25/2019(Deferred: Patient decision),11/25/2019(Deferred: Other),09/10/2019 Pneumococcal Conjugate PCV 13 02/16/2021 Pneumococcal Polysaccharide PPV23 2018 Social History Tobacco Use Types Packs/Day Years Used Date Smoking Tobacco: Every Day Cigarettes 0.3 40.4 Started: 11/25/1987 Smokeless Tobacco: Never Tobacco Cessation:Ready to Q uit: No; Counseling Given: Yes AUDIT-C Answer Date Recorded Q1: How often do you have a drink containing alc ohol? Monthly or less 12/16/2024 Q2: How many drinks containi ng alcohol do you have on a typical day when you are drinking? 3 or 4 12/16/2024 Q3: How often do you have si x or more drinks on one occasion? Never 12/16/2024 PHQ-2 Answer Date Recorded PHQ-2 Total Score (If total score is 3 or more points, staff should administer the PHQ-9) 0 12/16/2024 Sex and Gender Information Value Date Recorded Sex Assigned at Not on file Legal Sex Male 2:30 AM RADIOGRAPHER ANGIOGRAM Gender Identity Not on file Sexual Orientation Not on file Last Filed Vital Signs Vital Sign Reading Time Taken Comments Blood Pressure 118/82 12/16/2024 11:08 AM RADIOGRAPHER ANGIOGRAM Pulse 77 12/16/2024 11:08 AM RADIOGRAPHER ANGIOGRAM Temperature 36.9 C (98.4 F) 12/16/2024 11:08 AM RADIOGRAPHER ANGIOGRAM Respiratory Rate 16 12/16/2024 11:08 AM RADIOGRAPHER ANGIOGRAM Oxygen Saturation 99% 12/16/2024 11:08 AM RADIOGRAPHER ANGIOGRAM Inhaled Oxygen Concentration - - Weight 69.9 kg (154 lb) 12/16/2024 11:08 AM RADIOGRAPHER ANGIOGRAM Height 177.8 cm (5' 10 ) 12/16/2024 11:08 AM RADIOGRAPHER ANGIOGRAM Body Mass Index 22.1 12/16/2024 11:08 AM RADIOGRAPHER ANGIOGRAM Plan of Treatment Not on file Procedures Procedure Name Priority Date/Time Associated Diagnosis Comments PSA DIAGNOSTIC Routine 09/23/2024 11:32 AM CDT Elevated PSA, between 10 and less than 20 ng/ml CT CHEST ABDOMEN PELVIS W CONTRAST ED 05/22/2022 9:06 PM CDT HEPATITIS C ANTIBODY Routine 01/04/2021 11:45 AM RADIOGRAPHER ANGIOGRAM Encounter for hepatitis C screening test for low risk patient COLONOSCOPY Routine 09/05/2020 from Last 3 Months or Most Recently Relevant to Health Maintenance Results * (ABNORMAL) PSA diagnostic (09/23/2024 11:32 AM CDT) PSA-Total 13.08(H) <=6.20 ng/mL Comment: Interpretive Data AGE SEX REFERENCE INTERVAL 0 minutes-150 years Female None 0 minutes-49 years Male None 50-59 years Male 0-3.90 60-69 years Male 0-5.40 70-79 years Male 0-6.20 80-150 years Male 0-6.20 The [employer] PSA Total assay procedure was used. Results from different manufacturers or methods may not be comparable. Serial testing should be performed using the same method. Current interpretive data last revised 22. Blood 09/23/2024 11:3 2 AM CDT 09/23/2024 1:39 PM CDT us Jorge Santacruz MD LAB BLOOD ORDERABLES Fi nal Result [facility] Department [place] [address] * CT Chest Abdomen Pelvis W Contrast (05/22/2022 9:06 PM CDT) Anatomical Region Laterality Modality Body N/A Computed Tomogra phy 05/22/2022 9:46 PM CDT Narrative 05/22/2022 10:26 PM CDT EXAM DESCRIPTION: CT CHEST ABDOMEN PELVIS W CONTRAST REASON FOR STUDY: Polytrauma, blunt Fall tonight off a ladder approximately 20 ft Pain all over Hx of COPD and HTN Smoker TECHNIQUE: CT scan of the chest, abdomen, and pelvis performed with intravenous and without oral contrast using helical scanning technique with dynamic intravenous contrast injection. Reconstructed coronal and sagittal MPR images reviewed. All images stored on PACS. Automated exposure control was used as a dose optimization technique for this examination. CONTRAST TYPE/DOSE: 100mL of IOVERSOL 350 MG IODINE/ML INTRAVENOUS SYRINGE injected COMPARISON: CT dated 02/20/2022 , PET CT dated 02/09/2021 FINDINGS: There is no acute traumatic aortic injury and the imaged supra-aortic arteries demonstrate no evidence of acute traumatic injury. Atherosclerotic calcifications of the thoracic aorta and its branches are present. There is no central pulmonary embolism. There is no supraclavicular, axillary, or mediastinal lymphadenopathy. There is a mildly enlarged left hilar lymph node which measures up to 12 mm in short axis dimension which is indeterminate. Scattered mediastinal lymph nodes are present which are not enlarged by CT size criteria. There is mild enlargement of the right atrium and right ventricle. No pericardial effusion. No mediastinal hematoma. The imaged thyroid gland is normal. There is no pleural effusion or pneumothorax. Redemonstrated is a cavitary lesion with thick strickland in the left lower lobe measuring up to approximately 25 x 17 x 26 mm, not substantially changed compared to CT on 02/20/2022. There is an unchanged solid noncalcified pulmonary nodule in the right middle lobe measuring 10 mm. There are additional smaller solid noncalcified pulmonary nodules in both lungs. Calcified granulomas are also present. Extensive upper lobe predominant pulmonary emphysema is unchanged. There is no evidence of pneumomediastinum. Mild subsegmental atelectasis is present. There is no evidence of acute hepatic injury. No focal hepatic lesions. The hepatic and portal veins are patent. The gallbladder is normal. The spleen and pancreas are normal. There is mild thickening of left adrenal gland which maintains its adreniform shape. The right adrenal gland is normal. There is no definitive evidence of acute pancreatic injury. No pancreatic masses with normal parenchymal enhancement. No pancreatic duct dilatation. There are nonobstructive bilateral renal calculi which measure up to approximately 2 mm. No acute renal injury. There is normal enhancement of both renal parenchyma. The urinary bladder is normal. There is a tiny sliding hiatal hernia. Otherwise, the stomach is normal. The small bowel and colon are normal in course and caliber with no evidence of obstruction, inflammation, or acute traumatic injury. Scattered colonic diverticulosis is present. The appendix is normal. There is unchanged mild fat stranding adjacent to the 2nd portion of the duodenum and hepatic periportal region which is not substantially changed compared to prior PET-CT on 02/09/2021 with surrounding nonenlarged lymph nodes at this region and within the gastrohepatic ligament. There is no intra-abdominopelvic lymphadenopathy. There is no definitive free air or free fluid. Atherosclerotic calcifications of the abdominal aorta is branches are present. There is mild dilatation of the infrarenal abdominal aorta measuring up to 25 mm. There is no evidence of acute vascular injury. Bone windows demonstrate acute burst fracture of L1 vertebral body with approximately 3 mm osseous retropulsion resulting in at least mild osseous central canal stenosis. There is a central sagittal fracture cleft with the fracture extending to the posterior elements at the spinous process and junction of both lamina. There is approximately 35% vertebral body height loss. Acute minimally displaced fracture of the anterosuperior T12 vertebral body with slight compression of the superior endplate. Acute nondisplaced fracture of the T12 spinous process. Probable small anterior epidural hematoma at the level of L1 with small anterior prevertebral hematoma at the level of L1 and T12. There is acute minimally displaced fracture of the sacral S3 vertebral body at midline extending to the posterior elements with no definitive extension to the sacral neural foramina. There are also minimally displaced fractures of bilateral sacral ala at the level of S3. There is subtle indentation along the superior endplate of L2 which may reflect nondisplaced compression fracture with no vertebral body height loss. There is an acute minimally displaced fracture of the anterior cortex of the upper sternal body adjacent to the manubrial sternal junction with no definitive retrosternal/anterior mediastinal hematoma. Acute displaced fracture of the anterior C7 vertebral body is best characterized on dedicated cervical spine CT performed concurrently on 05/22/2022. Healed left lateral 8th and 9th rib fractures.. IMPRESSION: 1. Acute burst fracture of L1 vertebral body with approximately 3 mm osseous retropulsion resulting in at least mild osseous central canal stenosis. There is a central sagittal fracture cleft with the fracture extending to the posterior elements at the spinous process and junction of both lamina. There is approximately 35% vertebral body height loss. 2. Acute minimally displaced fracture of the anterosuperior T12 vertebral body with slight compression of the superior endplate. Acute nondisplaced fracture of the T12 spinous process. 3. Probable small anterior epidural hematoma at the level of L1 with small anterior prevertebral hematoma at the level of L1 and T12. 4. Acute minimally displaced fracture of the sacral S3 vertebral body at midline extending to the posterior elements with no definitive extension to the sacral neural foramina. Minimally displaced acute fractures of bilateral sacral ala at the level of S3. 5. Subtle indentation along the superior endplate of L2 which may reflect nondisplaced compression fracture with no vertebral body height loss. 6. Acute minimally displaced fracture of the anterior cortex of the upper sternal body adjacent to the manubrial sternal junction with no definitive retrosternal/anterior mediastinal hematoma. 7. Acute displaced fracture of the anterior C7 vertebral body is best characterized on dedicated cervical spine CT performed concurrently on 05/22/2022. Please refer to dedicated cervical spine CT performed concurrently on 05/22/2022 for further characterization of cervical spine injuries. Critical findings were telephoned by Dr. Bartholomew to Dr. Ewing at 9:34 p.m. RADIOGRAPHER ANGIOGRAM on 05/22/2022. THIS IS AN ELECTRONICALLY VERIFIED FINAL REPORT 05/22/2022 10:26 PM - Electronically signed by Fadia Bartholomew M.D. AT: AT Report ID: [id number] Reading Location: [id number] Procedure Note Fadia Bartholomew MD - 05/22/2022 EXAM DESCRIPTION: CT CHEST ABDOMEN PELVIS W CONTRAST REASON FOR STUDY: Polytrauma, blunt Fall tonight off a ladder approximately 20 ft Pain all over Hx of COPDand HTN Smoker TECHNIQUE: CT scan of the chest, abdomen, and pelvis performed with intravenous and without oral contrast using helical scanning techniquewith dynamic intravenous contrast injection. Reconstructed coronal and sagittalMPR images reviewed. All images stored on PACS. Automated exposure control was used as a dose optimization technique forthis examination. CONTRAST TYPE/DOSE: 100mL of IOVERSOL 350 MG IODINE/ML INTRAVENOUSSYRINGE injected COMPARISON: CT dated 02/20/2022 , PET CT dated 02/09/2021 FINDINGS: There is no acute traumatic aortic injury and the imaged supra-aorticarteries demonstrate no evidence of acute traumatic injury. Atherosclerotic calcifications of the thoracic aorta and its branches are present. Thereis no central pulmonary embolism. There is no supraclavicular, axillary, or mediastinal lymphadenopathy.There is a mildly enlarged left hilar lymph node which measures up to 12 mm inshort axis dimension which is indeterminate. Scattered mediastinal lymph nodesare present which are not enlarged by CT size criteria. There is mild enlargement of the right atrium and right ventricle. No pericardial effusion. No mediastinal hematoma. The imaged thyroid gland is normal. There is no pleural effusion or pneumothorax. Redemonstrated is a cavitary lesion with thick strickland in the left lowerlobe measuring up to approximately 25 x 17 x 26 mm, not substantially changed compared to CT on 02/20/2022. There is an unchanged solid noncalcified pulmonary nodule in the right middle lobe measuring 10 mm. There are additional smaller solid noncalcified pulmonary nodules in both lungs. Calcified granulomas are also present. Extensive upper lobe predominant pulmonary emphysema is unchanged. There is no evidence ofpneumomediastinum. Mild subsegmental atelectasis is present. There is no evidence of acute hepatic injury. No focal hepatic lesions.The hepatic and portal veins are patent. The gallbladder is normal. Thespleen and pancreas are normal. There is mild thickening of left adrenal gland which maintains itsadreniform shape. The right adrenal gland is normal. There is no definitive evidence ofacute pancreatic injury. No pancreatic masses with normal parenchymalenhancement. No pancreatic duct dilatation. There are nonobstructive bilateral renal calculi which measure up to approximately 2 mm. No acute renal injury. There is normal enhancementof both renal parenchyma. The urinary bladder is normal. There is a tiny sliding hiatal hernia. Otherwise, the stomach is normal. The small boweland colon are normal in course and caliber with no evidence of obstruction, inflammation, or acute traumatic injury. Scattered colonic diverticulosisis present. The appendix is normal. There is unchanged mild fat stranding adjacent to the 2nd portion of the duodenum and hepatic periportal region which is not substantially changed compared to prior PET-CT on 02/09/2021 with surrounding nonenlarged lymph nodes at this region and within the gastrohepatic ligament. There is no intra-abdominopelvic lymphadenopathy. There is no definitivefree air or free fluid. Atherosclerotic calcifications of the abdominal aorta is branches arepresent. There is mild dilatation of the infrarenal abdominal aorta measuring upto 25 mm. There is no evidence of acute vascular injury. Bone windows demonstrate acute burst fracture of L1 vertebral body with approximately 3 mm osseous retropulsion resulting in at least mild osseous central canal stenosis. There is a central sagittal fracture cleft withthe fracture extending to the posterior elements at the spinous process and junction of both lamina. There is approximately 35% vertebral body height loss. Acute minimally displaced fracture of the anterosuperior [id number] body with slight compression of the superior endplate. Acute nondisplaced fracture of the T12 spinous process. Probable small anterior epiduralhematoma at the level of L1 with small anterior prevertebral hematoma at the level of L1 and T12. There is acute minimally displaced fracture of the sacral S3 vertebral body at midline extending to the posterior elements with no definitive extension to thesacral neural foramina. There are also minimally displaced fractures ofbilateral sacral ala at the level of S3. There is subtle indentation along thesuperior endplate of L2 which may reflect nondisplaced compression fracture with no vertebral body height loss. There is an acute minimally displaced fracture of the anterior cortex ofthe upper sternal body adjacent to the manubrial sternal junction with no definitive retrosternal/anterior mediastinal hematoma. Acute displaced fracture of the anterior C7 vertebral body is best characterized ondedicated cervical spine CT performed concurrently on 05/22/2022. Healed leftlateral 8th and 9th rib fractures.. IMPRESSION: 1. Acute burst fracture of L1 vertebral body with approximately 3 mmosseous retropulsion resulting in at least mild osseous central canal stenosis.There is a central sagittal fracture cleft with the fracture extending to the posterior elements at the spinous process and junction of both lamina.There is approximately 35% vertebral body height loss. 2. Acute minimally displaced fracture of the anterosuperior T12 vertebralbody with slight compression of the superior endplate. Acute nondisplacedfracture of the T12 spinous process. 3. Probable small anterior epidural hematoma at the level of L1 with small anterior prevertebral hematoma at the level of L1 and T12. 4. Acute minimally displaced fracture of the sacral S3 vertebral body at midline extending to the posterior elements with no definitive extensionto the sacral neural foramina. Minimally displaced acute fractures ofbilateral sacral ala at the level of S3. 5. Subtle indentation along the superior endplate of L2 which may reflect nondisplaced compression fracture with no vertebral body height loss. 6. Acute minimally displaced fracture of the anterior cortex of the upper sternal body adjacent to the manubrial sternal junction with no definitive retrosternal/anterior mediastinal hematoma. 7. Acute displaced fracture of the anterior C7 vertebral body is best characterized on dedicated cervical spine CT performed concurrently on 05/22/2022. Please refer to dedicated cervical spine CT performed concurrently on 05/22/2022 for further characterization of cervical spine injuries. Critical findings were telephoned by Dr. Bartholomew to Dr. Ewing at 9:34p.m. RADIOGRAPHER ANGIOGRAM on 05/22/2022. THIS IS AN ELECTRONICALLY VERIFIED FINAL REPORT 05/22/2022 10:26 PM - Electronically signed by Fadia Bartholomew M.D. AT: AT Report ID: [id number] Reading Location: [place] [address] Jeff Ureña MD IM CT PROCEDURES Final Result * Hepatitis C antibody (01/04/2021 11:45 AM RADIOGRAPHER ANGIOGRAM) Hep C Ab Nonreactive Nonreactive [facility]) Comment: Interpretive Data Nonreactive: Antibodies to HCV not detected. Does NOT exclude the possibility of recent exposure to HCV. Equivocal: Equivocal for HCV antibodies. Supplemental molecular testing will be automatically performed to determine infection status in accordance with current CDC screening recommendations. Reactive: Positive for HCV antibodies. This may represent current or past HCV infection. Supplemental molecular testing will be automatically performed to determine current infection status in accordance with current CDC screening recommendations. Interpretive data was last revised on 2020. Testing performed by: [facility], [address] [place] [address], [place]., [address] Blood specimen (specimen) 01/04/2021 11:45 AM RADIOGRAPHER ANGIOGRAM 01/04/2021 7:07 PM RADIOGRAPHER ANGIOGRAM us Beth Nicholas NP LAB MICROBIOLOGY - GENERAL ORDERABLES Final Result [facility]) [address] [facility] Department [place] [address] * (ABNORMAL) Colonoscopy (09/05/2020) Anatomical Region Laterality Modality Other Narrative 09/05/2020 Polyp removed Neg repeat colonoscopy in [address] Yancey us Historical Provider MD ENDOSCOPY PROCEDURES Estelita l Result from Last 3 Months or Most Recently Relevant to Health Maintenance Insurance [facility] [employer] [facility] [employer] [facility] [employer] Advance Directives For more information, please contact: [phone] * Full Code (Latest Code Status on File) Date Activated Date Inactivated Comments 05/24/2022 1:32 AM 05/29/2022 10:44 AM Care Teams Interior Design Teacher Relationship Specialty Start [place] [id number] [address] PCP - General Family Medicine 09/20/22 [place] [address] [address] Consulting Physician Pulmonary Disease 04/03/22 Fab Parra MD [address] [facility] [address] [place] [address] Consulting Physician Orthopedic Surgery 08/15/23
--- OUTSIDE RECORDS SUMMARY | 2025-01-19 16:00 | XMS_ITS | Clinical Summary ---
Author Organization [facility] Address [address] [facility] [address] [place] [address] Phone Care Team Providers Care Rn Neurosurgical Name Role Phone Unavailable Primary Care Provider Unavailabl e Allergies No known active allergies Medications Multiple Vitamin (MULTIVITAMIN PO) Take 1 Tab by mouth daily. Active Ventolin HFA 108 (90 Base) MCG/ACT Aerosol Solution INHALE 1 TO 2 PUFFS BY MOUTH EVERY 6 HOURS NEEDED FOR SHORTNESS OF BREATH 18 g 0 Active sertraline (ZOLOFT) 100 MG Tablet Take 1 tablet by mouth once daily 14 Tablet 1 Active omeprazole (PriLOSEC) 20 MG CAPSULE DELAYED RELEASE Take 1 capsule by mouth once daily 7 Capsule 1 Active amLODIPine (NORVASC) 5 MG Tablet Take 1 tablet by mouth once daily 14 Tablet 1 Active traZODone (DESYREL) 50 MG Tablet TAKE 1/2 (ONE-HALF) TABLET BY MOUTH AT BEDTIME, PT NEEDS APPT 5 Tablet 1 Active Active Problems Problem Noted Date Diagnosed Date Essential hypertension, benign 01/31/2021 Dysthymic disorder 01/31/2021 Primary insomnia 01/31/2021 GERD without esophagitis 05/29/2012 Anxiety state 05/29/2012 Pain in joint 05/29/2012 COPD (chronic obstructive pulmonary disease) Immunizations Immunization Administration Dates Next Due Influenza Vaccine greater than 3 yrs 09/10/2019 Family History Medical History Relation Name Comments Alzheimer's Disease Father Diabetes Father Cancer Mother Throat, Breast. Relation Name Status Comments Father Mother Social History Tobacco Use Types Packs/Day Years Used Date Smoking Tobacco: Every Day Cigarettes 1 35 Smokeless Tobacco: Never Tobacco Cessation:Ready to Q uit: No; Counseling Given: Yes Alcohol Use Standard Drinks/Week Comments Yes 0 (1 standard drink = 0.6 oz pur e alcohol) 6-12 pack beer/month PHQ-2 Answer Date Recorded Total Score - Questions 1-9 0 07/2021 Sex and Gender Information Value Date Recorded Sex Assigned at Not on file Legal Sex Male 11:34 PM CDT Gender Identity Not on file Sexual Orientation Not on file Last Filed Vital Signs Vital Sign Reading Time Taken Comments Blood Pressure 136/70 01/31/2021 1:33 PM ASSOCIATE PROFESSOR OF PHILOSOPHY Pulse 88 01/31/2021 1:33 PM ASSOCIATE PROFESSOR OF PHILOSOPHY Temperature 36.8 C (98.2 F) 01/31/2021 1:33 PM ASSOCIATE PROFESSOR OF PHILOSOPHY Respiratory Rate 18 08/31/2020 8:18 AM CDT Oxygen Saturation 96% 01/31/2021 1:33 PM ASSOCIATE PROFESSOR OF PHILOSOPHY Inhaled Oxygen Concentration - - Weight 72.6 kg (160 lb) 01/31/2021 1:33 PM ASSOCIATE PROFESSOR OF PHILOSOPHY Height 177.8 cm (5' 10 ) 01/31/2021 1:33 PM ASSOCIATE PROFESSOR OF PHILOSOPHY Body Mass Index 22.96 01/31/2021 1:33 PM ASSOCIATE PROFESSOR OF PHILOSOPHY Plan of Treatment Health Maintenance Due Date Last Done Comments Hepatitis C Virus (HCV) Screening 1955 TdaP Immunization 1955 Cologuard 2003 Immunochemical Fecal Occult Blood 2003 Zoster Immunization (1 of 2) 2003 Respiratory Syncytial Virus (RSV) Immunization (Adult) (1 - Risk 60-74 years 1-dose series) 2013 Pneumococcal Immunization (5 0+ years) (2 of 2 - PCV) 2019 2018 Influenza Immunization (#1) 07/26/202408/25, 10/14/2014 SARS-COV-2 Immunization (2 - season) 2024 07/18/2021 Colonoscopy 08/31/2025 08/31/2020 Colorectal Cancer Screening 08/31/2025 08/31/2020 Pneumococcal Immunization Combined Discontinued 2018 PSA Discussion Discontinued 06/02/2020 Hepatitis B Immunization Aged Out No longer eligible based on patient's age to complete this topic Meningococcal Immunization (ACWY) Aged Out No longer eligible based on patient's age to complete this topic Rotavirus Immunization Aged Out No lo nger eligible based on patient's age to complete this topic Procedures Procedure Name Priority Date/Time Associated Diagnosis Comments PSA SCREEN Routine 06/02/2020 10:25 AM CDT Hypertension, unspecified type Healthcare maintenance (Adult) Memory impairment Encounter for screening for malignant neoplasm of prostate from Last 3 Months or Most Recently Relevant to Health Maintenance Results * (ABNORMAL) PSA SCREEN (06/02/2020 10:25 AM CDT) PSA SCREEN, TOTAL 4.75(H) <=4.00 ng/mL 06/02/2020 12:42 PM CDT [facility] Blood Venipuncture / Unknown 06/02/2020 10:25 AM CDT 06/02/2020 10:39 AM CDT Narrative [facility] - 06/02/2020 12:42 PM CDT PSA NOTE: The PSA value should be used in conjunction with information available from clinical evaluation and other diagnostic procedures. us Erich Yanes MD CHEMISTRY ORDERABLES Final Result [facility] [address] [place] [address] from Last 3 Months or Most Recently Relevant to Health Maintenance Insurance MEDICARE C AETNA
--- OUTSIDE RECORDS SUMMARY | 2025-01-19 16:00 | XMS_ITS | Encounter Summary ---
Author Organization [facility] Address [address] [place] [address] Phone Care Team Providers Care Tap Dancer Name Role Phone Erich Yanes MD Primary Care Provider Reason for Visit * Reason Comments Medication Refill Encounter Details Date Type Department Care Team (Late st Contact Info) Description 09/22/2021 Refill [facility] - Internal Medicine - [place] [address] [place] [address] Erich Yanes MD [address] [facility] [place] [address] Medication Refill Social History Tobacco Use Types Packs/Day Years Used Date Smoking Tobacco: Every Day Cigarettes 1 35 Smokeless Tobacco: Never Alcohol Use Standard Drinks/Week Comments Yes 0 (1 standard drink = 0.6 oz pur e alcohol) 6-12 pack beer/month PHQ-2 Answer Date Recorded Total Score - Questions 1-9 0 03/0 07/2021 Sex and Gender Information Value Date Recorded Sex Assigned at Not on file Legal Sex Male 11:34 PM CDT Gender Identity Not on file Sexual Orientation Not on file documented as of this encounter Miscellaneous Notes * Telephone Encounter - Katalina Cooper RN - 09/22/2021 4:32 PM CDT Medication failed the protocol, provider to review and approve the medication order if appropriate. Requested Prescriptions Pending Prescriptions Disp Refills omeprazole (PriLOSEC) 20 MG CAPSULE DELAYED RELEASE [Pharmacy Med Name: Omeprazole 20 MG Oral Capsule Delayed Release] 7 Capsule 0 Sig: Take 1 capsule by mouth once daily Proton Pump Inhibitors Protocol Passed - 09/22/2021 4:28 PM Passed - Visit with relevant provider in past 12 months or upcoming 90 days Recent Visits Date Type Provider Dept 01/31/21 Office Visit Erich Yanes MD [facility] Showing recent visits within past 365 days and meeting all other requirements Future Appointments No visits were found meeting these conditions. Showing future appointments within next 90 days and meeting all other requirements amLODIPine (NORVASC) 5 MG Tablet [Pharmacy Med Name: amLODIPine Besylate 5 MG Oral Tablet] 14 Tablet 0 Sig: Take 1 tablet by mouth once daily Calcium-Channel Blockers Protocol Passed - 09/22/2021 4:28 PM Passed - BP on record in the past year Clinician-entered: BP Readings from Last 3 Encounters: 01/31/21 136/70 08/31/20 138/64 Patient-entered: No data recorded Passed - Visit with relevant provider in past 12 months or upcoming 90 days Recent Visits Date Type Provider Dept 01/31/21 Office Visit Erich Yanes MD [facility] Showing recent visits within past 365 days and meeting all other requirements Future Appointments No visits were found meeting these conditions. Showing future appointments within next 90 days and meeting all other requirements traZODone (DESYREL) 50 MG Tablet [Pharmacy Med Name: traZODone HCl 50 MG Oral Tablet] 5 Tablet 0 Sig: TAKE 1/2 (ONE-HALF) TABLET BY MOUTH AT BEDTIME, PT NEEDS APPT Serotonin Modulators (6 Month Refill Only) Protocol Failed - 09/22/2021 4:28 PM Failed - Visit with relevant provider in past 6 months or upcoming 90 days Recent Visits No visits were found meeting these conditions. Showing recent visits within past 182 days and meeting all other requirements Future Appointments No visits were found meeting these conditions. Showing future appointments within next 90 days and meeting all other requirements Failed - Has an encounter in the past 6 months with a depression or anxiety visit diagnosis Passed - No PRN Use for Trazodone Passed - Patient has established therapy with Serotonin Modulators for at least 6 months documented in this encounter Plan of Treatment Not on file documented as of this encounter Visit Diagnoses Not on filedocumented in this encounter Additional Health Concerns Assessment Noted Time PHQ-9 Depression Total Score: 0 02/01/20 21 1:00 PM VIOLENT CRIMES DETECTIVE documented as of this encounter Care Teams Tap Dancer Relationship Specialty Start Date End Date Erich Yanes MD [address] [place] [address] PCP - General Internal Medicine 12/18/18 01/12/25 documented as of this encounter
--- OUTSIDE RECORDS SUMMARY | 2025-01-19 16:00 | XMS_ITS | Encounter Summary ---
Author Organization [facility] Address [address] [place] [address] Phone Care Team Providers Care Jewel Lathe Operator Name Role Phone Erich Yanes MD Primary Care Provider Reason for Visit * Reason Comments Medication Refill Encounter Details Date Type Department Care Team (Late st Contact Info) Description 12/16/2020 Refill [facility] - Internal Medicine - [place] [address] [place] [address] Erich Yanes MD [address] [facility] [place] [address] Medication Refill Social History Tobacco Use Types Packs/Day Years Used Date Smoking Tobacco: Every Day Cigarettes 1 35 Smokeless Tobacco: Never Alcohol Use Standard Drinks/Week Comments Yes 0 (1 standard drink = 0.6 oz pur e alcohol) 6-12 pack beer/month Sex and Gender Information Value Date Recorded Sex Assigned at Not on file Legal Sex Male 11:34 PM CDT Gender Identity Not on file Sexual Orientation Not on file documented as of this encounter Miscellaneous Notes * Telephone Encounter - Katalina Cooper RN - 12/16/2020 1:54 PM CST Please review and sign. VERY MANAGER documented in this encounter Plan of Treatment Not on file documented as of this encounter Visit Diagnoses Not on filedocumented in this encounter Care Teams Jewel Lathe Operator Relationship Specialty Start Date End Date Erich Yanes MD [address] [place] [address] PCP - General Internal Medicine 12/18/18 01/12/25 documented as of this encounter
--- OUTSIDE RECORDS SUMMARY | 2025-01-19 16:00 | XMS_ITS | Referral Summary ---
Author Organization [facility] Address [address] [place] [address] Care Team Providers Care Welding Machine Operator Arc Name Role Phone Unavailable Primary Care Provider Unavailabl e Source Comments [facility],non-owned Affiliates and Associated Physician Practices is amultiple site organization consisting of ambulatory clinics and hospital sitesin [place], [place], [place] and [place]. This disclosure is being madepursuant to the Care Everywhere program and may not contain all information available regarding this patient. Last updated 18.[email or web address] Allergies No known active allergies Medications * [...] Comments Blood Pressure 110/66 10/12/2013 12:00 PM PRINCIPAL CLERK Pulse 63 10/12/2013 12:00 PM PRINCIPAL CLERK Temperature 36.9 C (98.5 F) 10/12/2013 11:30 AM PRINCIPAL CLERK Respiratory Rate 19 10/12/2013 11:30 AM PRINCIPAL CLERK Oxygen Saturation 99% 10/12/2013 12:00 PM PRINCIPAL CLERK Inhaled Oxygen Concentration - - Weight 66.3 kg (146 lb 2.6 oz) 10/12/2013 5:12 A M PRINCIPAL CLERK Height 177.8 cm (5' 10 ) 10/10/2013 5:56 PM PRINCIPAL CLERK Body Mass Index 20.97 10/10/2013 5:56 PM PRINCIPAL CLERK Plan of Treatment Not on file Procedures Procedure Name Priority Date/Time Associated Diagnosis Comments LIPID PROFILE AM Draw 10/12/2013 5:58 AM PRINCIPAL CLERK from Last 3 Months or Most Recently Relevant to Health Maintenance Results * LIPID PROFILE (10/12/2013 5:58 AM PRINCIPAL CLERK) Cholesterol 147 <200 mg/dL 10/12/2013 7:10 AM PRINCIPAL CLERK [facility] Triglycerides 67 <150 mg/dL 10/12/2013 7:10 AM [facility] HDL Cholesterol 41.8 >40 mg/dL 3 7:10 AM [facility] Chol HDL Ratio 3.5 1.0 - 6.0 10/12/2013 7:10 AM [facility] LDL Calculated 92 65 - 130 mg/dL 10/12/2013 7:10 AM [facility] VLDL Calculated 13 10 - 40 mg/dL 10/12/2013 7:10 AM [facility] Blood BLOOD SPECIMEN / Unknown Lab Venipuncture / Unknown 10/12/2013 5:58 AM PRINCIPAL CLERK 10/12/2013 6:30 AM [facility] Narrative [facility] - 10/12/2013 7:10 AM PRINCIPAL CLERK Lipid Profile Comment: CHOLESTEROL LEVEL..................CLINICAL INTERPRETATION LESS [...] Lerner MD LAB - CHEMISTRY [facility] Organization Address City/State/[facility] Co de Phone Number [facility] [address] from Last 3 Months or Most Recently [...]
--- OUTSIDE RECORDS SUMMARY | 2025-01-19 16:00 | XMS_ITS | Encounter Summary ---
Author Organization [facility] Address [address] [place] [address] Phone Care Team Providers Care Experimental Flight Test Mechanic Name Role Phone Erich Yanes MD Primary Care Provider Reason for Visit * Reason Comments Medication Refill Encounter Details Date Type Department Care Team (Late st Contact Info) Description 11/13/2020 Refill [facility] - Internal Medicine - [place] [address] [place] [address] Erich Yanes MD [address] [facility] [place] [place] [address] Medication Refill Social History Tobacco Use Types [...] Telephone Encounter - Katalina Cooper RN - 11/14/2020 8:44 AM CST Please review and sign. TANCE ABUSE CLINICIAN documented in this encounter Plan of Treatment Not on file documented as of this encounter Visit Diagnoses Not on filedocumented in this encounter Care Teams Experimental Flight Test Mechanic Relationship Specialty Start Date End Date Erich Yanes MD [address] [place] [address] PCP - General Internal Medicine 12/18/18 01/12/25 documented as of this encounter
--- OUTSIDE RECORDS SUMMARY | 2025-01-19 16:00 | XMS_ITS | Clinical Summary ---
Author Organization [facility] [address] Address [address] [place] [address] Care Team Providers [employer] Name Role Phone Ramon Guidry MD Unavailable [phone] Jorge Santacruz MD Primary Care Provider Fab Parra MD Unavailable [phone] Allergies No known active allergies Medications fish oil-dha-epa 1,200-144-216 mg capsule Take 1 capsule by mouth [...] 12/10/2023 Assessment & Plan (12/16/2024 11:36 AM WORKERS COMPENSATION CLAIMS ASSISTANT): - chronic, intermittent - past hx of [...] L5-S1. Assessment & Plan (12/10/2023 2:23 PM WORKERS COMPENSATION CLAIMS ASSISTANT): - chronic, intermittent - uses muscle relaxer PRN only which has been working well for him XR spine 2021 IMPRESSION: 1. Healing fracture of the anterior superior endplate of C7 2. Multilevel degenerative disc and joint disease, as pronounced and severe at C4-C5 and L5-S1. Bilateral hearing loss 12/10/2023 Assessment & Plan (12/15/2023 9:35 PM WORKERS COMPENSATION CLAIMS ASSISTANT): - chronic, not controlled - had hearing [...] 10/29/2023 Assessment & Plan (12/16/2024 11:27 AM WORKERS COMPENSATION CLAIMS ASSISTANT): - Chronic condition, better controlled - nocturia [...] 08/15/2023 Assessment & Plan (12/15/2023 9:33 PM WORKERS COMPENSATION CLAIMS ASSISTANT): - recent diagnosis, nocturia affecting sleep, better [...] 08/15/2023 Assessment & Plan (10/29/2023 2:07 PM WORKERS COMPENSATION CLAIMS ASSISTANT): - nocturia affecting sleep - has elevated PSA which is to be repeated soon as well - he started OTC saw palmetto containing product for prostate with limited help - start Tamsulosin 0.4 mg nightly - follow up in 6 weeks Elevated PSA, between 10 and less than 20 ng/ml 08/16/2023 Overview (12/16/2024): Established with Urology Assessment & Plan (12/16/2024 11:29 AM WORKERS COMPENSATION CLAIMS ASSISTANT): - Chronic condition, persisting - most recent [...] 08/15/2023 Assessment & Plan (12/10/2023 2:09 PM WORKERS COMPENSATION CLAIMS ASSISTANT): - recent diagnosis, noted on lab work - most recent lab as shown below - repeat PSA total and free in 3 months was ordered for confirmation which is due to be done soon, reminder provided - also has nocturia which is being addressed Lab Results Component Value Date PSA 8.91 (H) 08/15/2023 Assessment & Plan (10/29/2023 2:05 PM WORKERS COMPENSATION CLAIMS ASSISTANT): - recent diagnosis, noted on lab work [...] 09/21/2022 Assessment & Plan (12/16/2024 11:25 AM WORKERS COMPENSATION CLAIMS ASSISTANT): Social History Tobacco Use Smoking Status Every [...] Pulmonology Assessment & Plan (12/10/2023 2:12 PM WORKERS COMPENSATION CLAIMS ASSISTANT): Social History Tobacco Use Smoking Status Every [...] recommended. Assessment & Plan (10/29/2023 12:22 PM WORKERS COMPENSATION CLAIMS ASSISTANT): Social History Tobacco Use Smoking Status Every [...] mo ago. Please see Dr. Joya (pulmonology) [phone] call for appt Emphysema of lung 01/30/2021 [...] mo ago. Please see Dr. Joya (pulmonology) [phone] call for appt Primary insomnia 01/04/2021 Assessment & Plan (12/16/2024 11:26 AM WORKERS COMPENSATION CLAIMS ASSISTANT): - chronic condition, well controlled - currently [...] management Assessment & Plan (10/29/2023 12:21 PM WORKERS COMPENSATION CLAIMS ASSISTANT): - chronic condition, not well controlled - [...] evaluated Assessment & Plan (01/04/2021 11:18 AM WORKERS COMPENSATION CLAIMS ASSISTANT): Pt has never had sleep study done. Refer to Dr. uTrner (sleep medicine) to be evaluated for sleep study NESSA (generalized anxiety disorder) 01/04/2021 Assessment & Plan (12/16/2024 11:30 AM WORKERS COMPENSATION CLAIMS ASSISTANT): - chronic, better controlled - hx of [...] 08/15/2023 Assessment & Plan (12/10/2023 2:15 PM WORKERS COMPENSATION CLAIMS ASSISTANT): - chronic, controlled - currently on Sertraline [...] daily. Assessment & Plan (01/04/2021 11:25 AM WORKERS COMPENSATION CLAIMS ASSISTANT): Patient reiterated no suicidal thoughts at this [...] 01/04/2021 Assessment & Plan (12/16/2024 11:30 AM WORKERS COMPENSATION CLAIMS ASSISTANT): - chronic, better controlled - hx of [...] plan Assessment & Plan (12/10/2023 2:14 PM WORKERS COMPENSATION CLAIMS ASSISTANT): - chronic, controlled - currently on Sertraline 100 mg daily - no SI, HI, delusions, hallucinations - continue current management Assessment & Plan (10/29/2023 2:05 PM WORKERS COMPENSATION CLAIMS ASSISTANT): - chronic, controlled - currently on Sertraline [...] daily. Assessment & Plan (01/04/2021 11:25 AM WORKERS COMPENSATION CLAIMS ASSISTANT): Patient reiterated no suicidal thoughts at this [...] stomach. Assessment & Plan (10/29/2023 2:06 PM WORKERS COMPENSATION CLAIMS ASSISTANT): - chronic, stable - currently on Omeprazole [...] of cdif and vit B12 deficiency with ad terminal makeup operator use of PPI. Recommend the following changes: [...] of cdif and vit B12 deficiency with penitentiary use of PPI. Recommend the following changes: [...] of cdif and vit B12 deficiency with ad terminal makeup operator use of PPI with pt, would like to remain on medication at this time Assessment & Plan (01/04/2021 11:12 AM WORKERS COMPENSATION CLAIMS ASSISTANT): HPI: Condition is stable Continue on current meds omeprazole 20mg when needed, encouraged healthy diet and exercise Avoid trigger foods including: carbonated beverages, caffeine, spicy, fried foods, tomatoes, cucumbers, and mint Avoid eating/drinking anything for at least 2 hours before bed. Sleep with bed propped. Discussed increased risk of cdif and vit B12 deficiency with ad terminal makeup operator use of PPI with pt, would like to remain on medication at this time Hypertension, essential 01/04/2021 Assessment & Plan (12/16/2024 11:22 AM WORKERS COMPENSATION CLAIMS ASSISTANT): BP Readings from Last 3 Encounters: 12/16/24 [...] 08/15/2023 Assessment & Plan (12/15/2023 9:32 PM WORKERS COMPENSATION CLAIMS ASSISTANT): BP Readings from Last 3 Encounters: 12/10/23 [...] 08/15/2023 Assessment & Plan (10/29/2023 2:05 PM WORKERS COMPENSATION CLAIMS ASSISTANT): BP Readings from Last 3 Encounters: 10/29/23 [...] daily Assessment & Plan (01/04/2021 11:16 AM WORKERS COMPENSATION CLAIMS ASSISTANT): HPI: Condition is worsening A&P: Discussed/ordered labs, encouraged healthy, low carbohydrate lifestyle and at least 150min/week of exercise, increase your amlodipine to 10mg daily Check blood pressure every couple days and call in bp readings in a week Vitamin D deficiency 01/04/2021 Assessment & Plan (12/16/2024 11:36 AM WORKERS COMPENSATION CLAIMS ASSISTANT): - chronic, better controlled - started Vitamin [...] 01/04/2021 Assessment & Plan (12/10/2023 2:18 PM WORKERS COMPENSATION CLAIMS ASSISTANT): - chronic, stable - not on daily [...] 01/04/2021 Assessment & Plan (12/16/2024 11:34 AM WORKERS COMPENSATION CLAIMS ASSISTANT): - chronic, better controlled - currently on [...] 71 01/04/2021 The ASCVD Risk score (Art DK, et al., 2019) failed to calculate for [...] following reasons: The patient has a prior AK or stroke diagnosis Assessment & Plan (12/10/2023 2:14 PM WORKERS COMPENSATION CLAIMS ASSISTANT): - chronic, better controlled - currently on [...] following reasons: The patient has a prior AK or stroke diagnosis Assessment & Plan (10/29/2023 12:20 PM WORKERS COMPENSATION CLAIMS ASSISTANT): - chronic, better controlled - currently on [...] following reasons: The patient has a prior AK or stroke diagnosis Assessment & Plan (08/16/2023 [...] following reasons: The patient has a prior AK or stroke diagnosis Assessment & Plan (09/21/2022 [...] following reasons: The patient has a prior AK or stroke diagnosis Assessment & Plan (02/16/2021 [...] lower carb lifestyle and exercise. The brand Clarimedix [place] 3 [address] [employer]end is a good [...] like you to see Dr. Valero (cardiology) [phone] please call to set up appt Subclinical hypothyroidism 01/04/2021 0 08/15/2023 Assessment & Plan (09/20/2022 1:53 PM CDT): - check lab work Lab Results Component Value Date TSH 2.67 10/04/2021 Encounters Date Type Department Care Team Description 01/15/2025 Telephone [facility] Primary Care at [address] [place] [id number] Jorge Santacruz MD 12/16/2024 11:00 AM WORKERS COMPENSATION CLAIMS ASSISTANT Office Visit [facility] Primary Care at [address] [place] [address] Jorge Santacruz MD Elevated PSA, between 10 and less than 20 ng/ml (Primary Dx); NESSA (generalized anxiety disorder); Hypertension, essential; Moderate episode of recurrent major depressive disorder (HCC); Personal history of tobacco use; Need for influenza vaccination; Nocturia; Primary insomnia; Vitamin D deficiency; Mixed hyperlipidemia; Chronic right-sided low back pain without sciatica; Chronic pain of right knee from Last 3 Months Immunizations Immunization Administration Dates Next Due Influenza, Quadrivalent, Hig h Dose, Preservative Free, Intrr 10/29/2023,09/20/2022,10/04/2021 Influenza, Quadrivalent, Spl it, Preservative Free, Intramuscular 10/14/2014 Influenza, Trivalent, High D ose, Split, Preservative Free, Intramuscular 12/16/2024 Influenza, Trivalent, IM (MDV) 09/10/2019 Influenza, Unspecified 09/23/2024(Deferr ed: Patient Refused),09/23/2024(Deferred: Patient Refused),08/25/2020(Deferred: Patient Refused),11/25/2019(Deferred: Patient decision),11/25/2019(Deferred: Other),09/10/2019 Pneumococcal Conjugate PCV 13 02/16/2021 Pneumococcal Polysaccharide PPV23 2018 Medical History Medical History Date Comments GERD (gastroesophageal reflux disease) Colon polyp Neg Sleep difficulties Gastric reflux Depression Hypertension COPD (chronic obstructive pulmonary disease) (HC C) Family History Medical History Relation Name Comments No Known Problems Brother Alzheimer's disease Father Cancer Mother Arthritis Other Hypertension Other No Known Problems Sister Relation Name Status Comments Brother Alive Father Mother Other Sister Alive Social History Tobacco Use Types Packs/Day Years [...] on file Legal Sex Male 2:30 AM WORKERS COMPENSATION CLAIMS ASSISTANT Gender Identity Not on file Sexual Orientation Not on file Obstetrics History Last Filed Vital Signs Vital Sign Reading Time Taken Comments Blood Pressure 118/82 12/16/2024 11:08 AM WORKERS COMPENSATION CLAIMS ASSISTANT Pulse 77 12/16/2024 11:08 AM WORKERS COMPENSATION CLAIMS ASSISTANT Temperature 36.9 C (98.4 F) 12/16/2024 11:08 AM WORKERS COMPENSATION CLAIMS ASSISTANT Respiratory Rate 16 12/16/2024 11:08 AM WORKERS COMPENSATION CLAIMS ASSISTANT Oxygen Saturation 99% 12/16/2024 11:08 AM WORKERS COMPENSATION CLAIMS ASSISTANT Inhaled Oxygen Concentration - - Weight 69.9 kg (154 lb) 12/16/2024 11:08 AM WORKERS COMPENSATION CLAIMS ASSISTANT Height 177.8 cm (5' 10 ) 12/16/2024 11:08 AM WORKERS COMPENSATION CLAIMS ASSISTANT Body Mass Index 22.1 12/16/2024 11:08 AM WORKERS COMPENSATION CLAIMS ASSISTANT Plan of Treatment Health Maintenance Due Date Last Done Comments DTaP/Tdap/Td Vaccine (1 - Tdap) 1964 Zoster Vaccine (1 of 2) 2003 Covid-19 Vaccine (3 - 2023-2 5 season) 2024 12/06/2021, 07/18/2021 Colon Cancer Screening-Colonoscopy 09/05/2025 09/05/2020 Well Visit 65+ 09/23/2025 09/23/2024, 08/15/2023 Depression Screening 12/16/2025 12/16/2024, 09/23/2024, 12/10/2023, Additional history exists Fall Risk Assessment 12/16/2025 12/16/2024, 09/23/2024, 12/10/2023, Additional history exists Colon Cancer Screening-CT Colonography Discontinued 09/05/2020 Colon Cancer Screening-DNA Stool Discontinued 09/05/20 20 Colon Cancer Screening-FIT Discontinued 09/05/2020 Colon Cancer Screening-Sigmoidoscopy Discontinued 09/05/2020 Hepatitis C Screening Completed 01/04/2021 Pneumococcal vaccine 65+ Completed 02/16/2021, 05/26 Abdominal Aortic Aneurysm (A AA) Screen Completed 05/22/2022, 2018 Hepatitis B Screening Completed 09/23/2024 Prostate Cancer Screening-PSA Discontinued , 12/10/2023, 08/15/2023, Additional history exists Influenza Vaccine Completed 12/16/2024, , 09/20/2022, Additional history exists Procedures Procedure Name Priority Date/Time Associated Diagnosis Comments PSA DIAGNOSTIC Routine 09/23/2024 11:32 AM CDT Elevated PSA, between 10 and less than 20 ng/ml CT CHEST ABDOMEN PELVIS W CONTRAST ED 05/22/2022 9:06 PM CDT HEPATITIS C ANTIBODY Routine 01/04/2021 11:45 AM WORKERS COMPENSATION CLAIMS ASSISTANT Encounter for hepatitis C screening test for [...] 2 AM CDT 09/23/2024 1:39 PM CDT Jorge Santacruz MD LAB BLOOD ORDERABLES Fi nal Result [facility] Department [place] [address] * CT Chest Abdomen Pelvis [...] Bartholomew to Dr. Ewing at 9:34 p.m. WORKERS COMPENSATION CLAIMS ASSISTANT on 05/22/2022. THIS IS AN ELECTRONICALLY VERIFIED FINAL REPORT 05/22/2022 10:26 PM - Electronically signed by Fadia Bartholomew M.D. AT: AT Report ID: [id number] Reading Location: [place] [address] Procedure Note Fadia Bartholomew MD - 05/22/2022 [...] Acute minimally displaced fracture of the anterosuperior [id number] body with slight compression of the superior [...] Dr. Bartholomew to Dr. Ewing at 9:34p.m. WORKERS COMPENSATION CLAIMS ASSISTANT on 05/22/2022. THIS IS AN ELECTRONICALLY VERIFIED FINAL REPORT 05/22/2022 10:26 PM - Electronically signed by Fadia Bartholomew M.D. AT: AT Report ID: [id number] Reading Location: [place] [address] us Jeff Ureña MD IMG CT PROCEDURES Final Result * Hepatitis C antibody (01/04/2021 11:45 AM WORKERS COMPENSATION CLAIMS ASSISTANT) Hep C Ab Nonreactive Nonreactive [facility] [...] last revised on 2020. Testing performed by: [facility], [address] [place] [address], [place]., [address] Blood specimen (specimen) 01/04/2021 11:45 AM WORKERS COMPENSATION CLAIMS ASSISTANT 01/04/2021 7:07 PM WORKERS COMPENSATION CLAIMS ASSISTANT us Beth Nicholas NP LAB MICROBIOLOGY - GENERAL ORDERABLES Final Result [facility] Department [place] [address] * (ABNORMAL) Colonoscopy (09/05/2020) Anatomical Region Laterality Modality Other Narrative 09/05/2020 Polyp removed Neg repeat colonoscopy in [address] Yancey us Historical Provider MD ENDOSCOPY PROCEDURES Estelita l Result from Last 3 Months or Most Recently Relevant to Health Maintenance Insurance [facility] [employer] [facility] [employer] [facility] [employer] Advance Directives For more information, please contact: [phone] * Full Code (Latest Code Status on File) Date Activated Date Inactivated Comments 05/24/2022 1:32 AM 05/29/2022 10:44 AM Care Teams [employer] Relationship Specialty [place] [id number] [address] PCP - General Family Medicine 09/20/22 [place] [id number] [address] Consulting Physician Pulmonary Disease 04/03/22 Fab Parra MD [address] [facility] [address] [place] [address] Consulting Physician Orthopedic Surgery 08/15/23
== END 2025-01-19 13:48 | disposition home or self-care (01) ==
PROVIDERS: Visit Provider Urology
DX: C61 Malignant neoplasm of prostate (principal)
CPT/HCPCS: 78815; A9596